=== PATIENT | female | born 1960 | race Caucasian/White ===

== ENCOUNTER 2023-09-16 07:23 | Day surgery (SDC) | payer MEDICARE ==
[~2023-09-16 07:23] MED LIST: LIDOCAINE 1% (10MG/ML) FOR IV START INTRADERMA PRN
[2023-09-16 07:54] VITALS: TEMP 97.2
[2023-09-16] MEDS: IV FLUID CONTINUATION 1,000 ML IV ONE (08:03)
[2023-09-16] MEDS: LACTATED RINGERS 1,000 ML IV SCH (08:03)
[2023-09-16] MEDS ORDERED: PROPOFOL 10 MG/ML 20 ML VIAL IV ONE (08:11)
--- NOTE | 2023-09-16 08:34 | P.PCN ---
Date of Procedure: 09/16/23 Procedure(s) Performed: Brief history: Patient is a pleasant 63-year-old white female scheduled for an elective upper endoscopy as well as colonoscopy as a part of evaluation of severe heartburn of 70 is suspected omeprazole 20 mg daily continues to have daily symptoms. She is also scheduled for a screening colonoscopy today. Procedure performed: Esophagogastroduodenoscopy Colonoscopy Preoperative diagnosis: Longstanding history of GERD Screening for colon cancer Anesthesia: MAC Procedure: After informed consent was obtained from the patient was brought into the endoscopy unit and IV sedation was administered by anesthesia under continuous monitoring. Initially upper endoscopy was done. The Olympus GF 160 video endoscope was inserted inserted into the mouth and esophagus intubated without any difficulty and was gradually advanced into the stomach and duodenum and carefully examined. The bulb and second part of the duodenum appeared normal. The scope was then withdrawn into the stomach adequately insufflated with air and upon careful examination the antrum and body, cardia and fundus appeared normal. The scope was then withdrawn into the esophagus. Small hiatal hernia noted. The GE junction was located at 35 cm to the incisors. It appeared regular but given multiple erosions noted in the distal esophagus consistent with LA grade B reflux esophagitis. Rest of the esophagus appeared normal. Patient tolerated the procedure well. At this time the patient continued to remain sedation. Initial digital rectal examination was normal. Olympus CF 160 video colonoscope was then inserted into the rectum and gradually advanced to the right colon with ileocolic anastomosis was visualized and appeared normal. Mucosa of the transverse colon, descending colon, sigmoid colon and rectum appeared normal. Retroflexion was performed in the rectum and no lesions were noted. Patient tolerated the procedure well. Impression: 1. Upper endoscopy reviewed small hiatal hernia anemia lesions of the distal esophagus consistent with LA grade B reflux esophagitis 2. Colonoscopy was within normal limits with no evidence of colorectal neoplasia Recommendations: Findings of this examination were discussed with the patient as well as family. She was advised to increase omeprazole to 20 mg twice daily and following reflux measures. Recommended repeat screening colonoscopy in 10 years.
[2023-09-16 08:40] VITALS: RESP 18
[2023-09-16 09:04] VITALS: BP 137/67; PULSE 67
== END 2023-09-16 09:15 | disposition home or self-care (01) ==
LOC: ORWHC2ENDO 07:23
PROVIDERS: ATTEND Internal Medicine Gastroenterology
DX: K44.9 Diaphragmatic hernia without obstruction or gangrene (principal); D64.9 Anemia, unspecified; E78.5 Hyperlipidemia, unspecified; E07.9 Disorder of thyroid, unspecified; M54.59 Other low back pain; G91.9 Hydrocephalus, unspecified; F41.9 Anxiety disorder, unspecified; F03.90 Unspecified dementia, unspecified severity, without behavioral disturbance, psychotic disturbance, mood disturbance, and anxiety; F31.9 Bipolar disorder, unspecified; M81.0 Age-related osteoporosis without current pathological fracture; Z79.83 Long term (current) use of bisphosphonates; Z79.899 Other long term (current) drug therapy; Z79.51 Long term (current) use of inhaled steroids
CPT/HCPCS: 43235; J2704; G0121

== ENCOUNTER 2023-11-19 12:58 | Emergency (ER) | payer MEDICARE ==
[2023-11-19 13:05] VITALS: RESP 18
--- NOTE | 2023-11-19 13:18 | ED ---
Psych HPI - General Chief Complaint: Psychiatric Symptoms Stated Complaint: petition/psych Time Seen by Provider: 11/19/23 13:00 Source: EMS, RN notes reviewed, old records reviewed Mode of arrival: EMS Limitations: no limitations - History of Present Illness Initial Comments: This is a 63-year-old female for psychiatric evaluation. Patient presents today for evaluation of trying to leave assisted living facility. When she tried to leave EMS was called PD was called and patient made statements of wanting to kill herself. Patient stated she was initially her self with a gun, patient is very uncooperative and uninformative during history of present illness MD Complaint: suicidal ideation, feels depressed, altered mental status -: unknown Associated Psychiatric Symptoms: depression, suicidal ideation, racing thoughts Quality: constant Improves With: none Worsens With: none Associated Symptoms: confusion Treatments Prior to Arrival: placed on mental health hold If Self Harm: admits thoughts of self harm - Related Data Home Medications Medication Instructions Recorded Confirmed ARIPiprazole [Abilify] 10 mg PO DAILY 09/11/23 11/19/23 Acetaminophen [Tylenol Arthritis] 650 mg PO BID@0700,1600 09/11/23 11/19/23 Acetaminophen [Tylenol Arthritis] 650 mg PO Q6H PRN 09/11/23 11/19/23 Alendronate Sodium 70 mg PO OCAMPO@0500 09/11/23 11/19/23 Atorvastatin Calcium 20 mg PO HS 09/11/23 11/19/23 Calcium Carbonate [Tums] 500 mg PO DAILY 09/11/23 11/19/23 Cyclobenzaprine HCl 10 mg PO BID 09/11/23 11/19/23 DULoxetine HCL [Cymbalta] 60 mg PO DAILY 09/11/23 11/19/23 Docusate [Colace] 100 mg PO BID 09/11/23 11/19/23 Donepezil [Aricept] 5 mg PO HS 09/11/23 11/19/23 Fluticasone Propionate 1 spr EA NOSTRIL DAILY@0700 09/11/23 11/19/23 [Fluticasone Propionate [place] 50 mcg Nasal [place]] Linaclotide [Linzess] 72 mcg PO DAILY 09/11/23 11/19/23 Memantine [Namenda] 10 mg PO BID 09/11/23 11/19/23 Naproxen Sodium [Aleve] 220 mg PO Q8H PRN 09/11/23 11/19/23 Omeprazole 20 mg PO BID 09/11/23 11/19/23 Oxybutynin Chloride [oxyBUTYnin 10 mg PO DAILY 09/11/23 11/19/23 chloride ER] buPROPion HCL [buPROPion HCL XL] 300 mg PO DAILY 09/11/23 11/19/23 polyethylene glycoL 3350 [Miralax] 17 gm PO DAILY 09/11/23 11/19/23 traMADol HCL 50 mg PO BID@0700,1600 09/11/23 11/19/23 traZODone HCL 150 mg PO HS 09/11/23 11/19/23 Maalox Plus 30 mg PO Q6H PRN 11/19/23 11/19/23 Allergies Allergy/AdvReac Type Severity Reaction Status Date / Time No Known Allergies Allergy Verified 11/19/23 14:50 Review of Systems ROS Statement: Those systems with pertinent positive or pertinent negative responses have been documented in the HPI. ROS Other: All systems not noted in ROS Statement are negative. Past Medical History Past Medical History: Dementia, Hyperlipidemia, Thyroid Disorder Additional Past Medical History / Comment(s): congenital hydrocephalus, hep C, hypothyroidism, osteoporosis, chronic low back pain, difficulty swallowing solid foods History of Any Multi-Drug Resistant Organisms: None Reported Past Surgical History: No Surgical Hx Reported Past Anesthesia/Blood Transfusion Reactions: No Reported Reaction Past Psychological History: Anxiety, Bipolar, Depression Smoking Status: Never smoker General Exam Limitations: no limitations General appearance: alert, in no apparent distress Head exam: Present: atraumatic, normocephalic, normal inspection Eye exam: Present: normal appearance, PERRL, EOMI. Absent: scleral icterus, conjunctival injection, periorbital swelling ENT exam: Present: normal exam, mucous membranes moist Neck exam: Present: normal inspection. Absent: tenderness, meningismus, lymphadenopathy Respiratory exam: Present: normal lung sounds bilaterally. Absent: respiratory distress, wheezes, rales, rhonchi, stridor Cardiovascular Exam: Present: regular rate, normal rhythm, normal heart sounds. Absent: systolic murmur, diastolic murmur, rubs, gallop, clicks GI/Abdominal exam: Present: soft, normal bowel sounds. Absent: distended, tenderness, guarding, rebound, rigid Extremities exam: Present: normal inspection, full ROM, normal capillary refill. Absent: tenderness, pedal edema, joint swelling, calf tenderness Back exam: Present: normal inspection Neurological exam: Present: alert, oriented X3, CN II-XII intact Psychiatric exam: Present: normal affect, normal mood Skin exam: Present: warm, dry, intact, normal color. Absent: rash Course Vital Signs 11/19/23 11/19/23 12:59 17:07 Temperature 98.1 F 98.0 F Pulse Rate 102 H 88 Respiratory 18 18 Rate Blood Pressure 128/50 145/95 O2 Sat by Pulse 98 97 Oximetry - Reevaluation(s) Reevaluation #1: 11/19/23 13:24 Medical records reviewed Reevaluation #2: 11/19/23 13:24 Medically cleared for psychiatric evaluation Reevaluation #3: Differential Mental Health Depression, anxiety, bipolar, psychosis, schizophrenia, borderline personality, situational depression, adjustment disorder, behavioral disorder, brain tumor, malingering, substance abuse, encephalopathy, medication reaction, dementia, hypothyroidism, degenerative neurologic disorder, lupus.... This is not meant to be all-inclusive list Reevaluation #4: Was pt. sent in by a medical professional or institution (, PA, PROFESSOR OF SURGERY, urgent care, hospital, or group home...) When possible be specific @ -no Did you speak to anyone other than the patient for history (EMS, parent, family, police, friend...)? What history was obtained from this source @ -no Did you review nursing and triage notes (agree or disagree)? Why? @ -agree Are old charts reviewed (outside hosp., previous admission, EMS record, old EKG, old radiological studies, urgent care reports/EKG's, group home records)? Report findings @ -yes Differential Diagnosis (chest pain, altered mental status, abdominal pain women, abdominal pain men, vaginal bleeding, weakness, fever, dyspnea, syncope, headache, dizziness, GI bleed, back pain, seizure, CVA, palpatations, mental health, musculoskeletal)? @ -prior EKG interpreted by me (3pts min.). @ -no X-rays interpreted by me (1pt min.). @ -no CT interpreted by me (1pt min.). @ -no U/S interpreted by me (1pt. min.). @ -no What testing was considered but not performed or refused? (CT, X-rays, U/S, labs)? Why? @ -none What meds were considered but not given or refused? Why? @ -none Did you discuss the management of the patient with other professionals (professionals i.e. , PA, PROFESSOR OF SURGERY, lab, RT, psych nurse, administrator social welfare, horse and wagon driver, teacher, earth science technical officer, director of casework department)? Give summary @ -no Was smoking cessation discussed for >3mins.? @ -no Was critical care preformed (if so, how long)? @ -no Were there social determinants of health that impacted care today? How? (Homelessness, low income, unemployed, alcoholism, drug addiction, transportation, low edu. Level, literacy, decrease access to med. care, fci, rehab)? @ -none Was there de-escalation of care discussed even if they declined (Discuss DNR or withdrawal of care, Hospice)? DNR status @ -no What co-morbidities impacted this encounter? (DM, HTN, Smoking, COPD, CAD, Cancer, CVA, ARF, Chemo, Hep., AIDS, mental health diagnosis, sleep apnea, morbid obesity)? @ -none Was patient admitted / discharged? Hospital course, mention meds given and route, prescriptions, significant lab abnormalities, going to OR and other pertinent info. @ - 63 female was seen by psychiatry, patient is not suicidal or homicidal can be discharged home Discharge Undiagnosed new problem with uncertain prognosis? @ -no Drug Therapy requiring intensive monitoring for toxicity (Heparin, Nitro, Insulin, Cardizem)? @ -no Were any procedures done? @ -no Diagnosis/symptom? @ -Psychosis Acute, or Chronic, or Acute on Chronic? @ -Acute Uncomplicated (without systemic symptoms) or Complicated (systemic symptoms)? @ -Complicated Side effects of treatment? @ -no Exacerbation, Progression, or Severe Exacerbation? @ -exacerbation Poses a threat to life or bodily function? How? (Chest pain, [place], [place], pneumonia, PE, COPD, DKA, ARF, appy, cholecystitis, CVA, Diverticulitis, Homicidal, Suicidal, threat to staff... and all critical care pts) @ -yes psychiatric illness Medical Decision Making - Medical Decision Making 63 female was seen by psychiatry, patient is not suicidal or homicidal can be discharged home Disposition Clinical Impression: Mood disorder, Depression Disposition: HOME SELF-CARE Condition: Fair Instructions (If sedation given, give patient instructions): Mood Disorders (ED) Is patient prescribed a controlled substance at d/c from ED?: No Referrals: Cristiana Diaz DO [Primary Care Provider] - 1-2 days Time of Disposition: 16:30
[2023-11-19 17:09] VITALS: BP 145/95; PULSE 88; TEMP 98
== END 2023-11-19 17:47 | disposition home or self-care (01) ==
LOC: EC 12:58
CPT/HCPCS: 82075; 99285

== ENCOUNTER 2024-01-19 23:37 | Inpatient (IN) | payer MEDICARE, OTHER ==
--- NOTE | 2024-01-20 00:10 | ED ---
Fall HPI - General Chief Complaint: Fall Stated Complaint: Fall Time Seen by Provider: 01/19/24 23:42 Source: patient, EMS Mode of arrival: EMS - History of Present Illness Initial Comments: Patient is a 63-year-old female past medical history of bipolar disorder, dementia presenting today for fall and left hip pain. Patient states was walking her crocs and fell onto her left hip. She was unable to ambulate after the fall. Describes 10 out of 10 pain in the left hip. Worsens with movements. Denies any numbness. Denies any additional injuries. Denies syncope, hitting her head or injuring her neck. Has had a prior right hip replacement unsure of when this was done or who performed. No prior surgeries on the left hip. Patient is not on blood thinners. - Related Data Home Medications Medication Instructions Recorded Confirmed ARIPiprazole [Abilify] 5 mg PO DAILY 09/11/23 01/20/24 Acetaminophen [Tylenol Arthritis] 650 mg PO BID 09/11/23 01/20/24 Alendronate Sodium 70 mg PO OCAMPO@0500 09/11/23 01/20/24 Atorvastatin Calcium 20 mg PO HS 09/11/23 01/20/24 Calcium Carbonate [Tums] 500 mg PO DAILY 09/11/23 01/20/24 Cyclobenzaprine HCl 10 mg PO BID 09/11/23 01/20/24 DULoxetine HCL [Cymbalta] 60 mg PO DAILY 09/11/23 01/20/24 Docusate [Colace] 100 mg PO BID 09/11/23 01/20/24 Donepezil [Aricept] 5 mg PO HS 09/11/23 01/20/24 Fluticasone Propionate 1 spr EA NOSTRIL DAILY@0700 09/11/23 01/20/24 [Fluticasone Propionate [place] 50 mcg Nasal [place]] Linaclotide [Linzess] 72 mcg PO DAILY 09/11/23 01/20/24 Memantine [Namenda] 10 mg PO BID 09/11/23 01/20/24 Omeprazole 20 mg PO BID 09/11/23 01/20/24 Oxybutynin Chloride [oxyBUTYnin 10 mg PO DAILY 09/11/23 01/20/24 chloride ER] buPROPion HCL [buPROPion HCL XL] 300 mg PO DAILY 09/11/23 01/20/24 polyethylene glycoL 3350 [Miralax] 17 gm PO DAILY 09/11/23 01/20/24 traZODone HCL 150 mg PO HS 09/11/23 01/20/24 Maalox Plus 30 mg PO Q6H PRN 11/19/23 01/20/24 Benzonatate [Tessalon [place]] 200 mg PO TID@0700,1300,1900 01/20/24 01/20/24 Midodrine HCl [ProAmantine] 2.5 mg PO TID@0700,1300,1900 01/20/24 01/20/24 guaiFENesin [Mucinex] 600 mg PO BID@0700,1900 01/20/24 01/20/24 Previous Rx's Medication Instructions Recorded Docusate [Colace] 100 mg PO BID #60 capsule 01/22/24 traMADol HCL 50 mg PO BID PRN #4 tab 01/23/24 Apixaban [Eliquis] 2.5 mg PO BID #30 tab 01/24/24 HYDROcodone/APAP 5-325MG [[place] 1 - 2 tab PO Q6HR PRN #48 tab 01/24/24 5-325] Allergies Allergy/AdvReac Type Severity Reaction Status Date / Time No Known Allergies Allergy Verified 01/20/24 08:38 Review of Systems ROS Statement: Those systems with pertinent positive or pertinent negative responses have been documented in the HPI. ROS Other: All systems not noted in ROS Statement are negative. Past Medical History Past Medical History: Dementia, Hyperlipidemia, Thyroid Disorder Additional Past Medical History / Comment(s): congenital hydrocephalus, hep C, hypothyroidism, osteoporosis, chronic low back pain, difficulty swallowing solid foods History of Any Multi-Drug Resistant Organisms: None Reported Past Surgical History: No Surgical Hx Reported Past Anesthesia/Blood Transfusion Reactions: No Reported Reaction Past Psychological History: Anxiety, Bipolar, Depression Smoking Status: Never smoker General Exam - General Exam Comments Initial Comments: PE: CONSTITUTIONAL: No apparent distress, well appearing SKIN: Warm, dry, no jaundice, hives or petechiae, no lacerations or hematomas noted EYES: Pupils are equally round, extraocular movements intact without nystagmus, clear conjunctiva, non-icteric sclera HENT: Normocephalic, atraumatic, moist mucus membranes, oropharynx clear without exudates NECK: , Full range of motion, normal appearance, midline spinal tenderness to palpation PULMONARY: Clear to auscultation without wheezes, rhonchi, or rales, normal excursion, no accessory muscle use and no stridor CARDIOVASCULAR: Regular rate, rhythm, normal S1 and S2. No appreciated murmurs, rubs or gallops. Strong radial pulses with intact distal perfusion. No lower extremity edema GASTROINTESTINAL: Soft, active bowel sounds throughout, non-tender, non- distended, no palpable masses, no rebound or guarding. No hepatosplenomegaly MUSCULOSKELETAL: Extremities have no gross deformity, no edema, redness, or swelling. No calf swelling NEUROLOGIC:_a/o x 2 (oriented to self, knows she came from [place] and is in the hospital, knows Thanksgiving is this , believes date is Jan 162021, GCS 15, normal mentation and speech. Moves unaffected extremities x 3 without motor or sensory deficit, difficulty with hip flexion and knee extension 2/2 pain in hip with movements, TTP lateral left thigh, LLE held in external rotation and shortened compared to right, 2+ DP pulse palpable, sensation to light touch intact throughout thyroid extremity, right lower extremity, hips, bilateral upper extremities are nontender with patient and without gross deformity, no midline tenderness to palpation of the neck PSYCHIATRIC:_normal mood and affect, thought process is clear and linear Limitations: no limitations Course Vital Signs 01/19/24 01/20/24 23:39 03:21 Temperature 97.7 F Pulse Rate 81 79 Respiratory 16 18 Rate Blood Pressure 145/82 148/80 O2 Sat by Pulse 95 93 L Oximetry Medical Decision Making - Medical Decision Making Was pt. sent in by a medical professional or institution (, PA, MILLINERY SALESPERSON, urgent care, hospital, or jail...) When possible be specific Sent from assisted living facility Did you speak to anyone other than the patient for history (EMS, parent, family, police, friend...)? What history was obtained from this source @ Discussed with patient's nurse Miguelangel, from her facility to confirm patient's baseline mental status Did you review nursing and triage notes (agree or disagree)? Why? @ -I reviewed and agree with nursing and triage notes Were old charts reviewed (outside hosp., previous admission, EMS record, old EKG, old radiological studies, urgent care reports/EKG's, jail records)? Report findings @ -Medical records reviewed Differential Diagnosis (chest pain, altered mental status, abdominal pain women, abdominal pain men, vaginal bleeding, weakness, fever, dyspnea, syncope, headache, dizziness, GI bleed, back pain, seizure, CVA, palpatations, mental health, musculoskeletal)? @ -Differential Musculoskeletal Muscular strain, contusion, ligament sprain, fracture, arthritis, septic arthritis, bursitis, cellulitis, muscle spasm, nerve compression... This is not meant to be in all inclusive list EKG interpreted by me (3pts min.). @ -Sinus rhythm, rate 79 bpm, MS interval 152 ms, QRS duration 90 ms, QT/QTc 379/414 ms, normal axis, no ST elevations or depressions, no arrhythmia X-rays interpreted by me (1pt min.). @X-ray shows comminuted spiral, subtrochanteric fracture of the left femur CT interpreted by me (1pt min.). @ -None done U/S interpreted by me (1pt. min.). @ -None done What testing was considered but not performed or refused? (CT, X-rays, U/S, labs)? Why? @ -None What meds were considered but not given or refused? Why? @ -None Did you discuss the management of the patient with other professionals (professionals i.e. , PA, MILLINERY SALESPERSON, lab, RT, psych nurse, medical social consultant, motor and controls tester, teacher, water resources technical officer, protective services case worker)? Give summary @ -Case was discussed with Dr. Batista, orthopedics, kindly accepts for admission, recommends keeping patient n.p.o. request medicine consult for medical clearance and management, preop labs Was smoking cessation discussed for >3mins.? @ -No Was critical care preformed (if so, how long)? @ -No Were there social determinants of health that impacted care today? How? (Homelessness, low income, unemployed, alcoholism, drug addiction, transportation, low edu. Level, literacy, decrease access to med. care, snf, rehab)? @ -No Was there de-escalation of care discussed even if they declined (Discuss DNR or withdrawal of care, Hospice)? @ -No What co-morbidities impacted this encounter? (DM, HTN, Smoking, COPD, CAD, Cancer, CVA, ARF, Chemo, Hep., AIDS, mental health diagnosis, sleep apnea, morbid obesity)? @COPD Was patient admitted / discharged? Hospital course, mention meds given and route, prescriptions, significant lab abnormalities, going to OR and other pertinent info. @ -Admission to orthopedics-patient is a pleasant 63-year-old female history dementia, COPD presenting for mechanical trip and fall with resultant left hip injury. On assessment patient awake alert in no acute distress. Left lower extremity is held externally rotated and shortened compared to right lower e xtremity. Is neurovascularly intact, no lacerations or hematomas. Tenderness palpation of the proximal femur, no tenderness location of the hips/iliac crests bilaterally. Head and neck are atraumatic, remaining extremities are atraumatic. Discussed with patient plan for x-rays and pain control. Patient agreeable plan of care. Of note patient AO x 2. I did call patient's facility and confirm with her RN, Miguelangel, that this is baseline for patient, which he confirmed is patient's baseline. XR with comminuted subtrochanteric fracture. Discussed case with Dr. Batista, see note above. Kindly accepts for admission. [facility] consulted for med clearance, CXR, basic labs ordered. Updated patient to findings and plan of care. Pt agreeable with POC. Admitted in stable condition. Undiagnosed new problem with uncertain prognosis? @ -No Drug Therapy requiring intensive monitoring for toxicity (Heparin, Nitro, Insulin, Cardizem)? @ -No Were any procedures done? @ -No Diagnosis/symptom? @ -Comminuted displaced subtrochanteric fracture Acute, or Chronic, or Acute on Chronic? @ -acute Uncomplicated (without systemic symptoms) or Complicated (systemic symptoms)? @ uncomplicated Side effects of treatment? @ -No Exacerbation, Progression, or Severe Exacerbation? @ -No Poses a threat to life or bodily function? How? (Chest pain, [place], [place], pneumonia, PE, COPD, DKA, ARF, appy, cholecystitis, CVA, Diverticulitis, Homicidal, Suicidal, threat to staff... and all critical care pts) @ Yes, if left untreated would lead to permanent disability and chronic pain - Lab Data Result diagrams: 01/23/24 03:32 01/23/24 03:32 Disposition Clinical Impression: Comminuted fracture of shaft of femur Disposition: ADMITTED IP TO THIS HOSP Condition: Stable Is patient prescribed a controlled substance at d/c from ED?: No
[2024-01-20] MEDS: fentaNYL (PF) 50 MCG/ML 2 ML AMP IVP STA (00:11)
[2024-01-20] MEDS ORDERED: ONDANSETRON 4 MG/2 ML VIAL IVP PRN (00:50)
[2024-01-20] MEDS ORDERED: MORPHINE SULFATE 2 MG/ML SYRINGE IVP PRN (00:50)
--- NOTE | 2024-01-20 01:17 | XR ---
EXAMINATION TYPE: XR chest 1V DATE OF EXAM: 01/20/2024 COMPARISON: NONE HISTORY: Fall TECHNIQUE: Single frontal view of the chest is obtained. FINDINGS: There is right internal jugular central venous catheter terminating at cavoatrial junction. There is no suspicious peripheral focal air space opacity, pleural effusion, or pneumothorax seen. The cardiac silhouette size is upper limits of normal. Increase interstitial markings bilaterally are seen. The osseous structures are intact. IMPRESSION: Perhaps mild bilateral interstitial edema. Correlate for possible fluid overload state. [facility], , 01/20/2024 1:15 AM
[2024-01-20] MEDS: ACETAMINOPHEN IV (For NPO) 1,000 MG in EMPTY BAG 1 BAG IVPB STA (01:21)
[2024-01-20] MEDS: LIDOCAINE 4% PATCH TOPICAL ONE (01:22)
--- NOTE | 2024-01-20 01:23 | XR ---
EXAMINATION TYPE: XR Hip RT and AP Pelvis, XR femur LT DATE OF EXAM: 01/20/2024 COMPARISON: NONE HISTORY: Fall, left hip pain, suspect fracture TECHNIQUE: A single AP view of the pelvis is obtained. Two views of the right hip are obtained. 2 vi ews left femur. FINDINGS: Osseous structures are demineralized. There is no acute displaced fracture evident in the pelvis. Old healed fractures of the bilateral superior and inferior pelvic rami are seen. Two views of right hip show internal fixation hardware is revealed fracture of the right hip. There i s some heterotopic ossification seen. No acute fracture is identified. There is acute comminuted displaced subtrochanteric fracture of the left proximal femur. There is eran e impaction of the distal fracture fragment. Overlying soft tissue is unremarkable. IMPRESSION: There is acute comminuted displaced subtrochanteric fracture of the left proximal femur [facility], , 01/20/2024 1:21 AM
[2024-01-20] MEDS ORDERED: ACETAMINOPHEN TAB 325 MG TAB PO PRN (02:05)
[2024-01-20] MEDS ORDERED: NALOXONE 0.4 MG/ML 1 ML VIAL IV PRN (02:05)
[2024-01-20] MEDS: MORPHINE SULFATE 2 MG/ML SYRINGE IVP PRN (02:17)
[2024-01-20] MEDS: DEXTROSE 5%-0.45% NACL 1,000 ML IV SCH (02:44)
[2024-01-20] MEDS: traZODone HCL 50 MG TAB PO SCH (02:44)
[2024-01-20 02:46] LABS: Basophils # (A) 0.1 k/uL (0-0.2); Basophils % (A) 0 %; Eosinophils # (A) 0.3 k/uL (0-0.7); Eosinophils % (A) 2 %; HCT 34.2 % (34.0-46.0); HGB 11.7 gm/dL (11.4-16.0); Lymphocytes # (A) 1.6 k/uL (1.0-4.8); Lymphocytes % (A) 11 %; MCH 30.4 pg (25.0-35.0); MCHC 34.1 g/dL (31.0-37.0); Mean Platelet Volume 7.2; Monocytes # (A) 0.6 k/uL (0-1.0); Monocytes % (A) 4 %; Neutrophils % (A) 81 %; Platelet Count 363 k/uL (150-450); RBC 3.85 m/uL (3.80-5.40); RDW 12.4 % (11.5-15.5); WBC 14.7 k/uL (3.8-10.6)
[2024-01-20 02:50] LABS: African American GFR (CKD) >90 (>60 ml/min/1.73 sqM); Anion Gap 6 mmol/L; Blood Urea Nitrogen 14 mg/dL (7-17); Calcium 8.1 mg/dL (8.4-10.2); Carbon Dioxide 23 mmol/L (22-30); Chloride 94 mmol/L (98-107); Glucose 128 mg/dL (74-99); Non-African American GFR(CKD) >90 (>60 ml/min/1.73 sqM); Potassium 3.9 mmol/L (3.5-5.1); Sodium 123 mmol/L (137-145)
[2024-01-20 02:57] LABS: INR 0.9 (<1.2)
[2024-01-20 03:24] LABS: Partial Thromboplastin Time 18.8 sec (22.0-30.0)
[2024-01-20] MEDS: MORPHINE SULFATE 4 MG/ML SYRINGE IV PRN (04:21)
--- NOTE | 2024-01-20 07:45 | P.HPOR ---
History of Present Illness H&P Date: 01/20/24 The patient is a a very pleasant 63-year-old female with a past medical history significant for dementia, psychiatric issues, and COPD as well as a prior right intertrochanteric hip fracture fixed at [facility] around 5 years ago who presents today with a left subtrochanteric femur fracture. According to the patient she was wearing crocs shoes when she lost her balance, slipping and inju ring her left leg. She was unable to walk and was brought to the ER. X-rays showed a displaced subtrochanteric femur fracture. She was admitted under my care. This morning she is complaining of isolated pain in her left hip and thigh. Past Medical History Past Medical History: Dementia, Hyperlipidemia, Thyroid Disorder Additional Past Medical History / Comment(s): congenital hydrocephalus, hep C, hypothyroidism, osteoporosis, chronic low back pain, difficulty swallowing solid foods, shunt in brain History of Any Multi-Drug Resistant Organisms: None Reported Past Surgical History: No Surgical Hx Reported Past Anesthesia/Blood Transfusion Reactions: No Reported Reaction Past Psychological History: Anxiety, Bipolar, Depression Smoking Status: Never smoker Past Alcohol Use History: None Reported Past Drug Use History: None Reported Medications and Allergies Home Medications Medication Instructions Recorded Confirmed Type ARIPiprazole [Abilify] 10 mg PO DAILY 09/11/23 11/19/23 History Acetaminophen [Tylenol Arthritis] 650 mg PO BID@0700,1600 09/11/23 11/19/23 History Acetaminophen [Tylenol Arthritis] 650 mg PO Q6H PRN 09/11/23 11/19/23 History Alendronate Sodium 70 mg PO BERNABE@0500 09/11/23 11/19/23 History Atorvastatin Calcium 20 mg PO HS 09/11/23 11/19/23 History Calcium Carbonate [Tums] 500 mg PO DAILY 09/11/23 11/19/23 History Cyclobenzaprine HCl 10 mg PO BID 09/11/23 11/19/23 History DULoxetine HCL [Cymbalta] 60 mg PO DAILY 09/11/23 11/19/23 History Docusate [Colace] 100 mg PO BID 09/11/23 11/19/23 History Donepezil [Aricept] 5 mg PO HS 09/11/23 11/19/23 History Fluticasone Propionate 1 spr EA NOSTRIL DAILY@0700 09/11/23 11/19/23 History [Fluticasone Propionate [place] 50 mcg Nasal [place]] Linaclotide [Linzess] 72 mcg PO DAILY 09/11/23 11/19/23 History Memantine [Namenda] 10 mg PO BID 09/11/23 11/19/23 History Naproxen Sodium [Aleve] 220 mg PO Q8H PRN 09/11/23 11/19/23 History Omeprazole 20 mg PO BID 09/11/23 11/19/23 History Oxybutynin Chloride [oxyBUTYnin 10 mg PO DAILY 09/11/23 11/19/23 History chloride ER] buPROPion HCL [buPROPion HCL XL] 300 mg PO DAILY 09/11/23 11/19/23 History polyethylene glycoL 3350 [Miralax] 17 gm PO DAILY 09/11/23 11/19/23 History traMADol HCL 50 mg PO BID@0700,1600 09/11/23 11/19/23 History traZODone HCL 150 mg PO HS 09/11/23 11/19/23 History Maalox Plus 30 mg PO Q6H PRN 11/19/23 11/19/23 History Allergies Allergy/AdvReac Type Severity Reaction Status Date / Time No Known Allergies Allergy Verified 11/19/23 14:50 Physical Examination The patient is resting comfortably in her bed. She is alert and able to answer questions. Her head is normocephalic and atraumatic. Her cervical spine is nontender. She demonstrates nonlabored breathing with symmetric chest expansion. She has palpable pulses. There are no obvious deformities and there is no tenderness to palpation in both upper extremities. On inspection of the right lower extremity there are multiple surgical scars that are healed. She has no tenderness throughout the right lower extremity. She has no pain with passive range of motion of the right leg. A focused exam of the left lower extremity was conducted. On inspection there is obvious deformity with shortening and external rotation of the left leg. There is a pillow under the left thigh. Her thigh and calf are soft. There is pain with any attempts at passive range of motion. The foot is warm and well perfused with brisk capillary refill. Sensation is intact to light touch throughout the left foot. She is able to actively plantarflex and dorsiflex her ankle and her toes. Results X-rays of the pelvis, right hip, and left femur were reviewed. The patient has a prior right healed intertrochanteric hip fracture with sliding hip screw construct and cable. X-rays of the left femur show a displaced subtrochanteric spiral femur fracture. - Labs Labs: Abnormal Lab Results - Last 24 Hours (Table) 01/20/24 01/20/24 01/20/24 Range/Units 02:26 02:26 02: WBC 14.7 H (3.8-10.6) k/uL Neutrophils # 12.0 H (1.3-7.7) k/uL APTT 18.8 L (22.0-30.0) sec Sodium 123 L (137-145) mmol/L Chloride 94 L (98-107) mmol/L Glucose 128 H (74-99) mg/dL Calcium 8.1 L (8.4-10.2) mg/dL H & H 01/20/24 Range/Units 02:26 Hgb 11.7 (11.4-16.0) gm/dL Hct 34.2 (34.0-46.0) % Coagulation 01/20/24 Range/Units 02: INR 0.9 (<1.2) Result Diagrams: 01/20/24 02:26 01/20/24 02:26 Assessment and Plan Assessment: Left subtrochanteric femur fracture Healed right intertrochanteric hip fracture with intact sliding hip screw construct COPD Dementia Plan: I met with the patient this morning to discuss treatment options. My recommendation would be to proceed with operative fixation of her left bernabe btrochanteric femur fracture with a long intramedullary hip screw. We briefly discussed the procedure, the recovery, and potential risks and complications. Having previously undergone right hip fracture surgery the patient is somewhat aware of these potential risks and complications. The patient is to remain on bedrest with strict nonweightbearing of the left lower extremity. Internal medicine has been consulted for preoperative clearance and perioperative medical management. We will plan on surgery later this afternoon once she is cleared. Time with Patient: Greater than 30
[2024-01-20] MEDS: PANTOPRAZOLE 40 MG/10 ML VIAL IV SCH (08:38)
[2024-01-20] MEDS ORDERED: MAG HYDROX/AL HYDROX/SIMETH 30 ML CUP PO PRN (09:28)
[2024-01-20] MEDS: CALCIUM CARBONATE 500 MG CHEWABLE PO SCH (09:46)
[2024-01-20] MEDS: DOCUSATE 100 MG CAP PO SCH (09:47)
[2024-01-20] MEDS: ACETAMINOPHEN TAB 325 MG TAB PO SCH (09:47)
[2024-01-20] MEDS: polyethylene glycoL 3350 17 GM POWD.PACK PO SCH (09:47)
[2024-01-20] MEDS: MEMANTINE 10 MG TAB PO SCH (10:05)
[2024-01-20] MEDS: buPROPion XL 300 MG TAB.ER.24H PO SCH (10:05)
[2024-01-20] MEDS: DULoxetine HCL 60 MG CAPSULE.DR PO SCH (10:05)
[2024-01-20] MEDS: ARIPiprazole 5 MG TAB PO SCH (10:05)
[2024-01-20] MEDS: OXYBUTYNIN 10 MG TAB.ER.24 PO SCH (10:05)
[2024-01-20] MEDS: SODIUM CHLORIDE 0.9% 1,000 ML IV SCH (10:30)
[2024-01-20 11:25] LABS: Appearance,Urine Clear (Clear); Bilirubin,Urine Negative (Negative); Blood,Urine Negative (Negative); Color,Urine Light Yellow; Glucose,Urine (UA) Negative (Negative); Ketones,Urine Negative (Negative); Leukocyte Esterase,Urine Negative (Negative); Nitrite,Urine Negative (Negative); Protein,Urine Negative (Negative); Specific Gravity,Urine 1.017 (1.001-1.035); Urobilinogen,Urine <2.0 mg/dL (<2.0)
[2024-01-20 12:51] LABS: African American GFR (CKD) >90 (>60 ml/min/1.73 sqM); Anion Gap 4 mmol/L; Blood Urea Nitrogen 11 mg/dL (7-17); Calcium 7.4 mg/dL (8.4-10.2); Carbon Dioxide 23 mmol/L (22-30); Chloride 95 mmol/L (98-107); Glucose 111 mg/dL (74-99); Non-African American GFR(CKD) >90 (>60 ml/min/1.73 sqM); Potassium 3.6 mmol/L (3.5-5.1); Sodium 122 mmol/L (137-145)
--- NOTE | 2024-01-20 13:16 | CA ---
Transthoracic Echo Report Name: Jewell Suarez Age: 63 Gender: F : 1960 Exam Date: 01/20/2024 10:26 Exam Location: [facility] Ht (in): 65 Wt (lb): 135 Ordering Physician: Radha Menard Attending/Referring Phys: Derian CALL Forensic Psychologist Kenya Cortes, BEE Procedure CPT: Indications: CHF, surgical clearance Cardiac Hx: Technical Quality: Good Contrast 1: Total Dose (mL): Contrast 2: Total Dose (mL): MEASUREMENTS (Male / Female) Normal Values 2D ECHO LV Diastolic Diameter PLAX 3.9 cm 4.2 - 5.9 / 3.9 - 5.3 cm LV Systolic Diameter PLAX 1.8 cm IVS Diastolic Thickness 0.8 cm 0.6 - 1.0 / 0.6 - 0.9 cm LVPW Diastolic Thickness 1.1 cm 0.6 - 1.0 / 0.6 - 0.9 cm LV Relative Wall Thickness 0.5 RV Internal Dim ED PLAX 1.8 cm LA Systolic Diameter LX 2.6 cm 3.0 - 4.0 / 2.7 - 3.8 cm LV Diastolic Volume MOD BP 37.0 cm??? 67 - 155 / 56 - 104 cm??? LV Systolic Volume MOD BP 10.1 cm??? 22 - 58 / 19 - 49 cm??? LV Ejection Fraction MOD BP 72.8 % >= 55 % LV Cardiac Index MOD BP 1285.3 cm???/min???m??? LV Diastolic Volume MOD 4C 38.9 cm??? LV Systolic Volume MOD 4C 9.1 cm??? LV Ejection Fraction MOD 4C 76.5 % LV Cardiac Index MOD 4C 1419.7 cm???/min???m??? LV Diastolic Length 4C 6.7 cm LV Systolic Length 4C 4.7 cm LV Diastolic Volume MOD 2C 32.3 cm??? LV Systolic Volume MOD 2C 10.9 cm??? LV Ejection Fraction MOD 2C 66.2 % LV Cardiac Index MOD 2C 1016.9 cm???/min???m??? LV Diastolic Length 2C 6.1 cm LV Systolic Length 2C 4.4 cm LA Volume 22.1 cm??? 18 - 58 / 22 - 52 cm??? LA Volume Index 13.1 cm???/m??? 16 - 28 cm???/m??? M-MODE Aortic Root Diameter MM 3.1 cm LA Systolic Diameter MM 2.1 cm LA Ao Ratio MM 0.7 AV Cusp Separation MM 1.8 cm DOPPLER MV Area PHT 2.0 cm??? Mitral E Point Velocity 63.2 cm/s Mitral A Point Velocity 92.8 cm/s Mitral E to A Ratio 0.7 MV Deceleration Time 374.3 ms TR Peak Velocity 210.6 cm/s TR Peak Gradient 17.7 mmHg Right Ventricular Systolic Press 22.7 mmHg FINDINGS Left Ventricle Left ventricular ejection fraction is estimated at 55-60 %. Mildly increased posterior wall thickness. Left ventricular cavity size normal. No obvious regional wall motion abnormalities. Right Ventricle Normal right ventricular size and function. Right ventricular systolic pressure within normal limits. Right Atrium Normal right atrial size. Left Atrium Normal left atrial size. Mitral Valve Structurally normal mitral valve. No mitral stenosis. Mild mitral regurgitation. Aortic Valve Trileaflet aortic valve. No aortic valve stenosis or regurgitation. Tricuspid Valve Structurally normal tricuspid valve. No tricuspid stenosis. mild tricuspid regurgitation. Pulmonic Valve Structurally normal pulmonic valve. Trace pulmonic regurgitation. No pulmonic stenosis. Pericardium No pericardial or pleural effusion. Aorta Normal size aortic root and proximal ascending aorta. CONCLUSIONS 1. Normal left ventricular size and systolic function 2. Mild mitral and tricuspid regurgitation Previewed by: Dr. Parish Peguero MD (Electronically Signed) Final Date: 20 January 2024 13:14
--- NOTE | 2024-01-20 14:11 | P.CONS ---
History of Present Illness - Reason for Consult Consult date: 01/20/24 - History of Present Illness This is a 63-year-old male with medical history significant for hyperlipidemia, hypothyroidism, congenital hydrocephalus with shunt, hepatitis C, dementia, anxiety/bipolar/depression. Patient came into the hospital secondary to a fall while slipping out of her crocs onto her left hip. She is unable to ambulate out of the fall reports having 10 out of 10 pain in the left hip. Femur x-ray reveals an acute comminuted displaced subtrochanteric fracture of the left proximal femur. Chest x-ray shows mild bilateral interstitial edema correlate for possible fluid overload state. Labs on admission reveal a white blood cell count of 14.7, sodium level of 123, BUN of 14 creatinine of 0.66. Her glucose was 128. Patient is afebrile, or normal sinus rhythm, she is slightly hypertensive in the 140s over 90s, she is 93% on room air. Will need to check a proBNP. EKG does reveal normal sinus rhythm with no specific T wave or ST abnormalities. REVIEW OF SYSTEMS: CONSTITUTIONAL: No fever, no malaise, no fatigue. HEENT: No recent visual problems or hearing problems. Denied any sore throat. CARDIOVASCULAR: No chest pain, orthopnea, PND, no palpitations, no syncope. PULMONARY: No shortness of breath, no cough, no hemoptysis. GASTROINTESTINAL: No diarrhea, no nausea, no vomiting, no abdominal pain. NEUROLOGICAL: No headaches, no weakness, no numbness. HEMATOLOGICAL: Denies any bleeding or petechiae. GENITOURINARY: Denies any burning micturition, frequency, or urgency. MUSCULOSKELETAL/RHEUMATOLOGICAL: Denies any joint pain, swelling, or any muscle pain. ENDOCRINE: Denies any polyuria or polydipsia. The rest of the 14-point review of systems is negative. PHYSICAL EXAMINATION: GENERAL: The patient is alert and oriented x3, not in any acute distress. Well developed, well nourished. HEENT: Pupils are round and equally reacting to light. EOMI. No scleral icterus. No conjunctival pallor. Normocephalic, atraumatic. No pharyngeal erythema. No thyromegaly. CARDIOVASCULAR: S1 and S2 present. No murmurs, rubs, or gallops. PULMONARY: Chest is clear to auscultation, no wheezing or crackles. ABDOMEN: Soft, nontender, nondistended, normoactive bowel sounds. No palpable organomegaly. MUSCULOSKELETAL: No joint swelling or deformity. EXTREMITIES: No cyanosis, clubbing, or pedal edema. NEUROLOGICAL: Gross neurological examination did not reveal any focal deficits. SKIN: No rashes. Assessment and plan Acute fall trauma fracture to the left hip patient is currently pending surgical repair this consultation was placed for preoperative clearance patient has been cleared to undergo surgical repair of the left hip fracture with low surgical risk. Hyponatremia possibly hypervolemic chest x-ray suggest a volume overload state we will check a proBNP and echocardiogram. Was started on D5 half-normal saline which has been discontinued at this time. Hypothyroidism resumed on her levothyroxine Hyperlipidemia resumed on statin therapy History of dementia likely vascular patient is on Namenda which has been resumed Congenital hydrocephalus with shunt History of hepatitis C History of chronic back pain History of dysphagia follows with Dr. Chaparro Lynn Chronic nicotine use Anxiety/bipolar/depression patient has been resumed on all of her psychiatric medications GI prophylaxis DVT prophylaxis as per primary Full code Plan Check a proBNP if normal we will start the patient on normal saline at 75 mls/hr Check echocardiogram Resume all home medications continue cardiac telemetry and monitor blood pressure Check urinalysis Repeat sodium level now and repeat in the morning Patient has been cleared medically for surgical repair of the left hip she is considered low operative risk. The impression and plan of care has been dictated by Nurse Braeden Gibbs as directed. Dr. Delicia MD I have performed a history and physical examination and medical decision making of this patient, discussed the same with the dictator, and agree with the dict ators assessment and plan as written, documented as a scribe. Based on total visit time, I have performed more than 50% of this visit. Past Medical History Past Medical History: Dementia, Hyperlipidemia, Thyroid Disorder Additional Past Medical History / Comment(s): congenital hydrocephalus, hep C, hypothyroidism, osteoporosis, chronic low back pain, difficulty swallowing solid foods, shunt in brain History of Any Multi-Drug Resistant Organisms: None Reported Past Surgical History: No Surgical Hx Reported Past Anesthesia/Blood Transfusion Reactions: No Reported Reaction Past Psychological History: Anxiety, Bipolar, Depression Smoking Status: Never smoker Past Alcohol Use History: None Reported Past Drug Use History: None Reported Medications and Allergies Home Medications Medication Instructions Recorded Confirmed Type ARIPiprazole [Abilify] 5 mg PO DAILY 09/11/23 01/20/24 History Acetaminophen [Tylenol Arthritis] 650 mg PO BID 09/11/23 01/20/24 History Alendronate Sodium 70 mg PO OCAMPO@0500 09/11/23 01/20/24 History Atorvastatin Calcium 20 mg PO HS 09/11/23 01/20/24 History Calcium Carbonate [Tums] 500 mg PO DAILY 09/11/23 01/20/24 History Cyclobenzaprine HCl 10 mg PO BID 09/11/23 01/20/24 History DULoxetine HCL [Cymbalta] 60 mg PO DAILY 09/11/23 01/20/24 History Docusate [Colace] 100 mg PO BID 09/11/23 01/20/24 History Donepezil [Aricept] 5 mg PO HS 09/11/23 01/20/24 History Fluticasone Propionate 1 spr EA NOSTRIL DAILY@0700 09/11/23 01/20/24 History [Fluticasone Propionate [place] 50 mcg Nasal [place]] Linaclotide [Linzess] 72 mcg PO DAILY 09/11/23 01/20/24 History Memantine [Namenda] 10 mg PO BID 09/11/23 01/20/24 History Naproxen Sodium [Aleve] 220 mg PO Q8H PRN 09/11/23 01/20/24 History Omeprazole 20 mg PO BID 09/11/23 01/20/24 History Oxybutynin Chloride [oxyBUTYnin 10 mg PO DAILY 09/11/23 01/20/24 History chloride ER] buPROPion HCL [buPROPion HCL XL] 300 mg PO DAILY 09/11/23 01/20/24 History polyethylene glycoL 3350 [Miralax] 17 gm PO DAILY 09/11/23 01/20/24 History traMADol HCL 50 mg PO BID 09/11/23 01/20/24 History traZODone HCL 150 mg PO HS 09/11/23 01/20/24 History Maalox Plus 30 mg PO Q6H PRN 11/19/23 01/20/24 History Azithromycin [Zithromax Z Pack] See Taper PO DAILY 01/20/24 01/20/24 History Benzonatate [Tessalon Perle] 200 mg PO TID@0700,1300,1900 01/20/24 01/20/24 History Midodrine HCl [ProAmantine] 2.5 mg PO TID@0700,1300,0 01/20/24 01/20/24 History guaiFENesin [Mucinex] 600 mg PO BID@0700,0 01/20/24 01/20/24 History predniSONE See Taper PO DAILY 01/20/24 01/20/24 History Allergies Allergy/AdvReac Type Severity Reaction Status Date / Time No Known Allergies Allergy Verified 01/20/24 08:38 Physical Exam Vitals: Vital Signs Temp Pulse Pulse Resp BP BP Pulse Ox 01/20/24 07:50 98.2 F 77 15 148/92 93 L 01/20/24 04:02 98.0 F 76 17 146/91 93 L 01/20/24 03:21 79 18 148/80 93 L 01/19/24 23:39 97.7 F 81 16 145/82 95 Intake and Output 01/19/24 01/20/24 01/20/24 22:59 06:59 14:59 Output Total 0 Balance 0 Output: Urine 0 Other: Weight 61.235 kg Results CBC & Chem 7: 01/20/24 02:26 01/20/24 12:26 Labs: Abnormal Lab Results - Last 24 Hours (Table) 01/20/24 01/20/24 01/20/24 Range/Units 02:26 02:26 02:26 WBC 14.7 H (3.8-10.6) k/uL Neutrophils # 12.0 H (1.3-7.7) k/uL APTT 18.8 L (22.0-30.0) sec Sodium 123 L (137-145) mmol/L Chloride 94 L (98-107) mmol/L Glucose 128 H (74-99) mg/dL Calcium 8.1 L (8.4-10.2) mg/dL Assessment and Plan Time with Patient: Less than 30
[2024-01-20] MEDS: guaiFENesin 600 MG TABLET.ER PO SCH (17:59)
--- NOTE | 2024-01-20 18:04 | P.PN ---
Progress Note - Text Patient not felt to be safe for stabilization of subtrochanteric femoral shaft fracture with IMN today by anesthesia due to low sodium levels. Will plan for surgery tomorrow if cleared by anesthesia.
[2024-01-20] MEDS: DONEPEZIL 5 MG TAB PO SCH (19:59)
[2024-01-20] MEDS: ATORVASTATIN 20 MG TAB PO SCH (19:59)
[2024-01-21 04:03] LABS: African American GFR (CKD) >90 (>60 ml/min/1.73 sqM); Anion Gap 4 mmol/L; Blood Urea Nitrogen 7 mg/dL (7-17); Calcium 7.2 mg/dL (8.4-10.2); Carbon Dioxide 22 mmol/L (22-30); Chloride 99 mmol/L (98-107); Glucose 109 mg/dL (74-99); Non-African American GFR(CKD) >90 (>60 ml/min/1.73 sqM); Potassium 3.8 mmol/L (3.5-5.1); Sodium 125 mmol/L (137-145)
[2024-01-21] MEDS: FLUTICASONE NASAL 50MCG/SPRAY 16GM BTL EA NOSTRIL SCH (06:57)
[2024-01-21] MEDS: SODIUM CHLORIDE 0.9% 500 ML 500 ML IV ONE (09:19)
--- NOTE | 2024-01-21 10:15 | P.NPCON ---
History of Present Illness - Reason for Consult acute renal failure - History of Present Illness patient is a 63-year-old female with history of hypothyroidism, hepatitis C, dementia and bipolar disorder. Patient is admitted to the hospital with history of fall and sustained a fracture of the left proximal femur. Patient is scheduled for surgery today. Sodium was noted to be low at 123. Patient received normal saline and sodium has improved to 125. No history of nausea vomiting or diarrhea. Patient currently has an indwelling Craig catheter but it does not look like she was having a urine retention although 900 mL of urine charted. no thiazide diuretics noted on med list. Patient was on Naprosyn. blood pressure slightly on the lower side. Past Medical History Past Medical History: Dementia, Hyperlipidemia, Thyroid Disorder Additional Past Medical History / Comment(s): congenital hydrocephalus, hep C, hypothyroidism, osteoporosis, chronic low back pain, difficulty swallowing solid foods, shunt in brain History of Any Multi-Drug Resistant Organisms: None Reported Past Surgical History: No Surgical Hx Reported Past Anesthesia/Blood Transfusion Reactions: No Reported Reaction Past Psychological History: Anxiety, Bipolar, Depression Smoking Status: Never smoker Past Alcohol Use History: None Reported Past Drug Use History: None Reported Medications and Allergies Home Medications Medication Instructions Recorded Confirmed Type ARIPiprazole [Abilify] 5 mg PO DAILY 09/11/23 01/20/24 History Acetaminophen [Tylenol Arthritis] 650 mg PO BID 09/11/23 01/20/24 History Alendronate Sodium 70 mg PO OCAMPO@0500 09/11/23 01/20/24 History Atorvastatin Calcium 20 mg PO HS 09/11/23 01/20/24 History Calcium Carbonate [Tums] 500 mg PO DAILY 09/11/23 01/20/24 History Cyclobenzaprine HCl 10 mg PO BID 09/11/23 01/20/24 History DULoxetine HCL [Cymbalta] 60 mg PO DAILY 09/11/23 01/20/24 History Docusate [Colace] 100 mg PO BID 09/11/23 01/20/24 History Donepezil [Aricept] 5 mg PO HS 09/11/23 01/20/24 History Fluticasone Propionate 1 spr EA NOSTRIL DAILY@0700 09/11/23 01/20/24 History [Fluticasone Propionate [place] 50 mcg Nasal [place]] Linaclotide [Linzess] 72 mcg PO DAILY 09/11/23 01/20/24 History Memantine [Namenda] 10 mg PO BID 09/11/23 01/20/24 History Naproxen Sodium [Aleve] 220 mg PO Q8H PRN 09/11/23 01/20/24 History Omeprazole 20 mg PO BID 09/11/23 01/20/24 History Oxybutynin Chloride [oxyBUTYnin 10 mg PO DAILY 09/11/23 01/20/24 History chloride ER] buPROPion HCL [buPROPion HCL XL] 300 mg PO DAILY 09/11/23 01/20/24 History polyethylene glycoL 3350 [Miralax] 17 gm PO DAILY 09/11/23 01/20/24 History traMADol HCL 50 mg PO BID 09/11/23 01/20/24 History traZODone HCL 150 mg PO HS 09/11/23 01/20/24 History Maalox Plus 30 mg PO Q6H PRN 11/19/23 01/20/24 History Azithromycin [Zithromax Z Pack] See Taper PO DAILY 01/20/24 01/20/24 History Benzonatate [Tessalon Perle] 200 mg PO TID@0700,1300,1900 01/20/24 01/20/24 History Midodrine HCl [ProAmantine] 2.5 mg PO TID@0700,1300,1900 01/20/24 01/20/24 History guaiFENesin [Mucinex] 600 mg PO BID@0700,1900 01/20/24 01/20/24 History predniSONE See Taper PO DAILY 01/20/24 01/20/24 History Allergies Allergy/AdvReac Type Severity Reaction Status Date / Time No Known Allergies Allergy Verified 01/20/24 08:38 Physical Exam Vitals: Vital Signs Temp Pulse Resp BP Pulse Ox 01/21/24 07:20 98.0 F 81 18 101/69 93 L 01/21/24 01:35 97.5 F L 83 18 109/67 90 L 01/20/24 19:23 99.0 F 87 15 111/77 94 L 01/20/24 14:00 98.4 F 90 18 157/71 97 Intake and Output 01/20/24 01/21/24 01/21/24 22:59 06:59 14:59 Output Total 900 1650 Balance -900 -1650 Output: Urine 900 1650 Other: Voiding Method Indwelling Catheter # Voids 1 patient is awake, comfortable, no acute distress. Examination of the heart S1 and S2 Examination of the lungs bilateral breath sounds are heard Abdomen is soft nontender Examination lower extremity shows no significant edema Results - Lab Results Most recent lab results Calcium 7.2 mg/dL (8.4-10.2) L 01/21/24 03:26 01/20/24 02:01/21/24 03:26 Assessment and Plan Assessment: 1. Hyponatremia, hypovolemic and improving with normal saline. Repeat sodium now and check urine osmolality and urine sodium. 2. Status post fall with fracture of left femur #3. History of bipolar disorder Plan: continue with normal saline. Check urine osmolality and urine sodium Repeat sodium now If serum sodium is stable and continues to increase patient may proceed with surgery. Next Thank you for the consultation. We will continue to follow the patient with you during her hospitalization.
--- NOTE | 2024-01-21 14:05 | P.PN ---
Subjective Progress Note Date: 01/21/24 This is a 63-year-old male with medical history significant for hyperlipidemia, hypothyroidism, congenital hydrocephalus with shunt, hepatitis C, dementia, anxiety/bipolar/depression. Patient came into the hospital secondary to a fall while slipping out of her crocs onto her left hip. She is unable to ambulate out of the fall reports having 10 out of 10 pain in the left hip. Femur x-ray reveals an acute comminuted displaced subtrochanteric fracture of the left proximal femur. Chest x-ray shows mild bilateral interstitial edema correlate for possible fluid overload state. Labs on admission reveal a white blood cell count of 14.7, sodium level of 123, BUN of 14 creatinine of 0.66. Her glucose was 128. Patient is afebrile, or normal sinus rhythm, she is slightly hypertensive in the 140s over 90s, she is 93% on room air. Will need to check a proBNP. EKG does reveal normal sinus rhythm with no specific T wave or ST abnormalities. 01/21/24 Surgery was held off yesterday due to the low sodium level anesthesia requesting sodium of 131 or higher to proceed with surgery. Nephrology was consulted. Patient has been continued on normal saline at 75 mls/hr and sodium level today is up to 128. Patient was cleared for surgery medically with low operative risk and by nephrology as long as sodium has been trending upwards. TSH 1.490. Echocardiogram reveals normal LV systolic function. REVIEW OF SYSTEMS: CONSTITUTIONAL: No fever, no malaise, no fatigue. HEENT: No recent visual problems or hearing problems. Denied any sore throat. CARDIOVASCULAR: No chest pain, orthopnea, PND, no palpitations, no syncope. PULMONARY: No shortness of breath, no cough, no hemoptysis. GASTROINTESTINAL: No diarrhea, no nausea, no vomiting, no abdominal pain. NEUROLOGICAL: No headaches, no weakness, no numbness. PHYSICAL EXAMINATION: GENERAL: The patient is alert and oriented x3, not in any acute distress. Well developed, well nourished. HEENT: Pupils are round and equally reacting to light. EOMI. No scleral icterus. No conjunctival pallor. Normocephalic, atraumatic. No pharyngeal erythema. No thyromegaly. CARDIOVASCULAR: S1 and S2 present. No murmurs, rubs, or gallops. PULMONARY: Chest is clear to auscultation, no wheezing or crackles. ABDOMEN: Soft, nontender, nondistended, normoactive bowel sounds. No palpable organomegaly. MUSCULOSKELETAL: No joint swelling or deformity. EXTREMITIES: No cyanosis, clubbing, or pedal edema. NEUROLOGICAL: Gross neurological examination did not reveal any focal deficits. SKIN: No rashes. Assessment and plan Acute fall trauma fracture to the left femur patient is currently pending surgical repair this consultation was placed for preoperative clearance patient has been cleared to undergo surgical repair of the left femur fracture with low surgical risk. Hyponatremia hypovolemic Hypothyroidism resumed on her levothyroxine Hyperlipidemia resumed on statin therapy History of dementia likely vascular patient is on Namenda which has been resumed Congenital hydrocephalus with shunt History of hepatitis C History of chronic back pain History of dysphagia follows with Dr. Chaparro Lynn Chronic nicotine use Anxiety/bipolar/depression patient has been resumed on all of her psychiatric medications GI prophylaxis DVT prophylaxis as per primary Full code Plan Continue normal saline at 75 mls/hr Repeat sodium level tomorrow Nephrology following. Resume all home medications continue cardiac telemetry and monitor blood pressure Patient has been cleared medically for surgical repair of the left femur she is considered low operative risk. As sodium is slowly improving, nephrology has cleared for surgery. The impression and plan of care has been dictated by Radha Menard, Nurse Practitioner as directed. Dr. Delicia MD I have performed a history and physical examination and medical decision making of this patient, discussed the same with the dictator, and agree with the dictators assessment and plan as written, documented as a scribe. Based on total visit time, I have performed more than 50% of this visit. Objective - Vital Signs Vital signs: Vital Signs Temp 98.0 F 01/21/24 07:20 Pulse 81 01/21/24 07:20 Resp 18 01/21/24 07:20 BP 101/69 01/21/24 07:20 Pulse Ox 93 L 01/21/24 07:20 FiO2 Intake & Output 01/20/24 01/21/24 01/21/24 18:59 06:59 18:59 Output Total 900 1650 Balance -900 -1650 Output: Urine 900 1650 Other: Voiding Method Indwelling Catheter Indwelling Catheter # Voids 1 - Labs CBC & Chem 7: 01/20/24 02:26 01/21/24 09:42 Labs: Abnormal Lab Results - Last 24 Hours (Table) 01/20/24 01/21/24 Range/Units 12:26 03:26 Sodium 122 L 125 L (137-145) mmol/L Chloride 95 L (98-107) mmol/L Glucose 111 H 109 H (74-99) mg/dL Calcium 7.4 L 7.2 L (8.4-10.2) mg/dL Assessment and Plan Time with Patient: Less than 30
[2024-01-21] MEDS: LACTATED RINGERS 1,000 ML IV ONE (15:51)
[2024-01-21] MEDS ORDERED: ROCURONIUM 10 MG/ML (5 ML VIAL) IV ONE (17:07)
[2024-01-21] MEDS ORDERED: GLYCOPYRROLATE 0.2 MG/ML 2 ML VIAL ONE (17:07)
[2024-01-21] MEDS ORDERED: LIDOCAINE 1% INJ 10MG/ML (20 ML MDV) ONE (17:07)
[2024-01-21] MEDS ORDERED: fentaNYL (PF) 50 MCG/ML 2 ML AMP ONE (17:07)
[2024-01-21] MEDS ORDERED: MIDAZOLAM 2 MG/2 ML VIAL ONE (17:07)
[2024-01-21] MEDS ORDERED: TRANEXAMIC 1,000 MG/100ML-NACL PREMIX BAG ONE (17:07)
[2024-01-21] MEDS ORDERED: PHENYLEPHRINE 10 MG/ML VIAL ONE (17:07)
[2024-01-21] MEDS ORDERED: HYDROmorphone (PF) 1 MG/ML ONE (17:07)
[2024-01-21] MEDS ORDERED: NEOSTIGMINE 1 MG/ML 10 ML VIAL ONE (17:07)
[2024-01-21] MEDS ORDERED: SUCCINYLCHOLINE CHLORIDE 200 MG/10 ML VIAL IV ONE (17:07)
[2024-01-21] MEDS ORDERED: PROPOFOL 10 MG/ML 20 ML VIAL IV ONE (17:07)
[2024-01-21] MEDS: SODIUM CHLORIDE 0.9% 50 ML with ceFAZolin 2,000 MG IV ONE (17:12)
[2024-01-21] MEDS ORDERED: NALOXONE 0.4 MG/ML 1 ML VIAL IV PRN (19:42)
[2024-01-21] MEDS ORDERED: HYDROcodone/APAP 5-325MG 1 EACH TAB PO PRN (19:42)
[2024-01-21] MEDS ORDERED: diazePAM 5 MG TAB PO PRN (19:42)
[2024-01-21] MEDS ORDERED: ONDANSETRON 4 MG/2 ML VIAL IVP PRN (19:42)
[2024-01-21] MEDS ORDERED: MAGNESIUM HYDROXIDE 2,400 MG/30 ML CUP PO PRN (19:42)
--- NOTE | 2024-01-21 19:42 | P.OP ---
Date of Procedure: 01/21/24 Preoperative Diagnosis: 1. Closed left subtrochanteric/femoral shaft fracture 2. COPD 3. Hyponatremia 4. Prior right hip fracture 5. Dementia Postoperative Diagnosis: Same Procedure(s) Performed: Operative fixation of left subtrochanteric femur fracture with long intramedullary hip screw Implants: Shelbie gamma nail 380x10 mm nail, 85 mm lag screw, 40mm and 45mm distal locking screws Anesthesia: GETA Surgeon: Carlos Alberto Batista Merchandise Pickup/Receiving Associate #1: Som Monteiro Estimated Blood Loss (ml): 200 IV fluids (ml): 700 Urine output (ml): 900 Pathology: none sent Condition: stable Disposition: PACU Indications for Procedure: The patient is a very pleasant 63-year-old female multiple medical problems who fell and sustained a subtrochanteric femur fracture with extension into the fem oral shaft. The patient was admitted under my care. She was seen by internal medicine and nephrology. She was not cleared for surgery on hospital day #2 due to hyponatremia. She was cleared for surgery today. I met with the patient to discuss her injury and treatment options. My recommendation was an open reduction of her femoral shaft fracture followed by placement of a long intramedullary hip screw. We discussed the potential risks and complications of this surgical procedure including but certainly not limited to risks from anesthesia, superficial infection, deep infection, fracture nonunion, fracture malunion, hardware failure including broken hardware, varus collapse with lag screw cut out of the femoral head, progression of hip arthritis, limb length discrepancy, symptomatic hardware, need for further surgery including hardware removal and conversion to arthroplasty, DVT, PE, acute coronary event, pressure ulcers, urinary tract infection, failure to thrive, an inability to regain preinjury level of function, and possibly . The patient and their family understand these potential complications and also awknowledge that other less common complications are possible. They provided both their verbal and written consent to go forward with operative fixation of their hip fracture with an intramedullary hip screw. Description of Procedure: The patient was identified in preoperative holding and the correct operative extremity was marked with my initials. I reviewed the consent form with the patient and all of her questions were answered. The patient was then brought back to the operating room by anesthesia. Anesthesia, preoperative antibiotics, and tranexamic acid were given by the anesthesia team while on the rfabius. Both ankles were padded with webril and boots for the [place] table were applied. The patient was then carefully transferred onto the [place] table. A perineal post was immediately placed. The contralateral arm was secured on a well-padded arm wilson. The ipsilateral arm was draped across the chest and secured with a pillow, foam, and paper tape to allow access to the proximal femur. Nonsterile drapes were applied to the operative extremity. The height of the table was elevated and the contralateral extremity was dropped towards the floor to facilitate imaging. A timeout was performed identifying the correct patient, operative extremity, and procedure. Fluoroscopy was brought in to assess the fracture. A provisional reduction was performed using longitudinal traction, adduction, and internal rotation. An AP and lateral view were obtained to assess the reduction. The operative extremity was then prepped and draped in the standard sterile fashion. I began by marking out the midportion of the fracture with fluoroscopy. A straight lateral incision was made over the proximal to mid shaft of the femur. Skin incision was made with a scalpel and dissection was carried down to the IT band with electrocautery. The IT band was then incised longitudinally in line with the skin incision. I elevated the vastus lateralis off the intermuscular septum down to the fracture. The fracture was identified. An unscrubbed visitor services assistant pulled traction through 100 table and adjusted rotation. The fracture was keyed in and the reduction was held with a Johnson clamp. I then proceeded to place cables above and below the reduction clamp. The reduction was verified with fluoroscopy and appeared almost anatomic. Both cables were tightened, crimped, and cut. The clamp was removed. The reduction held. A straight incision was made at the tip of the greater trochanter and extended proximally for 3 cm. Skin and subcutaneous tissues were incised sharply. The underlying fascia was incised in line with the skin incision. An awl was placed just medial to the tip of the greater trochanter on the AP view and colinear with the canal on the lateral view. A 3.2 mm guide pin was then advanced into the proximal femur. The position of the guidepin was verified with fluoroscopy. An opening reamer and soft tissue cannula were placed over the guidepin and used to open the proximal femur to the level of the lesser trochanter. The 3.2 mm guide pin and opening reamer were removed. A long ball-tipped guidewire was then placed through the proximal opening and advanced down to the distal femur. The position was verified with biplanar fluoroscopy. A measuring device was used to measure the nail to length of 380 mm. I then sequentially reamed in 1 mm increments starting with a 9 mm reamer. A 10 mm reamer generated angelo sheriff elected to use a 10 mm diameter nail. I reamed up to an 11.5 mm reamer. A long gamma nail was dispensed, hooked up to the targeting arm and I verified that the trochar through the targeting arm lined up with the slots on the nail. The nail was then impacted into the proximal femur until the appropriate depth had been reached. A small stab incision was made over the lateral aspect of the femur using the targeting arm as a reference for the lag screw. Incision was carried down to the skin and fascia down to the lateral cortex of the femur. The trocar was then placed up to the lateral cortex of the femur and a guidepin was placed in the low center position on the AP view and centered in the femoral head on the lateral view. Once the position of the guidewire was verified, we reamed to appropriate depth and placed a lag screw over the guidewire and into the femoral head. The position of the lag screw was assessed with fluoroscopy. The guidewire was then removed from the femoral head. The set screw was placed proximally, brought fully down and then released a quarter turn to allow compression. A final incision was made over the lateral femur at the site of the distal interlocking screw, again using the targeting arm as a reference. Using the perfect upper sioux technique to distal interlocking screws were placed. Final fluoroscopic images were taken showing excellent reduction of the fracture and appropriate position of the implants. All wounds were thoroughly irrigated and closed in layers. Sterile dressings were applied. The drapes were taken down, the patient was transferred off the [place] table, and was brought to recovery having tolerated the procedure well. Som Monteiro PA-C was required as a skilled visitor services assistant due to the complexity of surgery for patient positioning, draping, retraction, reduction of fracture, placement of hardware, closure of wounds, and application of dressings. PLAN: The patient can weight-bear as tolerated on their operative extremity. 2 doses of postoperative antibiotics. DVT prophylaxis with aspirin 81 mg twice a day starting the day of surgery. Dressing change on postoperative day #2. Oly reciate Internal Medical assistance with perioperative medical management. Discharge planning in process.
--- NOTE | 2024-01-21 19:50 | FL ---
EXAMINATION TYPE: FL guidance operating room, XR femur LT DATE OF EXAM: 01/21/2024 7:35 PM COMPARISON: Pre Operative Images if available both CT/MRI or plain film CLINICAL INDICATION: Female, 63 years old with history of LEFT FEMORAL NAIL; TECHNIQUE: FL guidance operating room, XR femur LT, multiple fluoroscopic images provided for procedu re. Total fluoroscopy time: 2min 21 sec Total submitted images to PACS: 11 DAP: [id number] mGym2 Gycm2 uGym2 cGycm2 or equivalent. FINDINGS: Fluoroscopic images during internal fixation/arthroplasty demonstrate hardware in appropriate positio n. Hardware appears intact. No immediate complication identified. IMPRESSION: 1. No evidence for intraoperative complication. 2. Please see the operative/procedural note for further details. [facility], , 01/21/2024 7:48 PM
[2024-01-21 20:56] LABS: Basophils # (A) 0.1 k/uL (0-0.2); Basophils % (A) 0 %; Eosinophils # (A) 0.1 k/uL (0-0.7); Eosinophils % (A) 1 %; HCT 28.5 % (34.0-46.0); Lymphocytes % (A) 6 %; MCH 30.5 pg (25.0-35.0); MCHC 32.9 g/dL (31.0-37.0); MCV 92.6 fL (80.0-100.0); Mean Platelet Volume 6.7; Monocytes # (A) 0.8 k/uL (0-1.0); Monocytes % (A) 4 %; Neutrophils # (A) 15.7 k/uL (1.3-7.7); Neutrophils % (A) 87 %; Platelet Count 328 k/uL (150-450); RBC 3.08 m/uL (3.80-5.40); RDW 12.9 % (11.5-15.5); WBC 17.9 k/uL (3.8-10.6)
[2024-01-21] MEDS: APIXABAN 2.5 MG TABLET PO SCH (21:08)
[2024-01-21] MEDS: HYDROmorphone 1 MG/ML 1 ML SYRINGE IVP PRN (21:15)
[2024-01-21] MEDS: SENNOSIDES-DOCUSATE SODIUM 1 EACH TAB PO SCH (21:15)
[2024-01-21 21:18] LABS: HGB 9.4 gm/dL (11.4-16.0)
[2024-01-22] MEDS: HYDROcodone/APAP 10-325MG 1 EACH TAB PO PRN (00:06)
[2024-01-22] MEDS: HYDROmorphone 0.5 MG/0.5 ML SYRINGE IVP PRN (02:27)
--- NOTE | 2024-01-22 08:25 | P.PN ---
Subjective Progress Note Date: 01/22/24 The patient is resting comfortably in bed. She has pain in her left thigh is otherwise doing well. No acute events per nursing. The patient denies chest pain or shortness of breath. Objective - Vital Signs Vital signs: Vital Signs Temp 98 F 01/22/24 07:36 Pulse 87 01/22/24 07:36 Resp 19 01/22/24 07:36 BP 97/64 01/22/24 07:36 Pulse Ox 98 01/22/24 07:36 FiO2 Intake & Output 01/21/24 01/22/24 01/22/24 18:59 06:59 18:59 Intake Total 750 75 Output Total 1325 Balance 750 -1250 Intake: IV 750 75 Output: Urine 1225 Estimated Blood Loss 100 Other: Voiding Method Indwelling Catheter Indwelling Catheter - Exam The patient is resting comfortably in her bed. She is alert and able to answer questions. She damage is nonlabored breathing with symmetric chest expansion. Focused exam of the left lower extremity was conducted. On inspection there are clean and intact dressings over the left hip and thigh and knee. There is a small amount of strikethrough on the superior and middle dressings. The thigh is swollen but soft and compressible. Femoral nerve function is intact. The patient is able to actively plantar flex and dorsiflex her ankle and her toes. The leg is warm and well perfused. She has a palpable dorsalis pedis pulse. - Labs CBC & Chem 7: 01/21/24 20:42 01/21/24 09:42 Labs: Abnormal Lab Results - Last 24 Hours (Table) 01/21/24 01/21/24 01/21/24 Range/Units 09:42 10:50 20:42 WBC 17.9 H (3.8-10.6) k/uL RBC 3.08 L (3.80-5.40) m/uL Hgb 9.4 L D (11.4-16.0) gm/dL Hct 28.5 L (34.0-46.0) % Neutrophils # 15.7 H (1.3-7.7) k/uL Sodium 128 L (137-145) mmol/L Urine Osmolality 270 L (400-1100) mOsm/kg Assessment and Plan Assessment: Postoperative day #1 status post left subtrochanteric fracture fixation with a long intramedullary hip screw Multiple medical problems Plan: 1. Weight-bear as tolerated left lower extremity with assistance and a walker 2. 2 doses postoperative antibiotics 3. DVT prophylaxis with Eliquis 2.5 mg BID x 4 weeks 4. Leave surgical dressing in place 5. Internal medicine and nephrology for perioperative medical management 6. Discharge planning
[2024-01-22 09:07] LABS: African American GFR (CKD) >90 (>60 ml/min/1.73 sqM); Anion Gap 0 mmol/L; Blood Urea Nitrogen 6 mg/dL (7-17); Calcium 7.1 mg/dL (8.4-10.2); Carbon Dioxide 28 mmol/L (22-30); Chloride 106 mmol/L (98-107); Glucose 91 mg/dL (74-99); Non-African American GFR(CKD) >90 (>60 ml/min/1.73 sqM); Potassium 4.1 mmol/L (3.5-5.1); Sodium 134 mmol/L (137-145)
--- NOTE | 2024-01-22 11:11 | P.PN ---
Subjective patient is seen for follow-up for hyponatremia, hypovolemic and improved with normal saline. Serum sodium is 134 today. No significant complaints today Tolerating oral intake. Objective - Vital Signs Vital signs: Vital Signs Temp 98 F 01/22/24 07:36 Pulse 87 01/22/24 07:36 Resp 19 01/22/24 07:36 BP 97/64 01/22/24 07:36 Pulse Ox 98 01/22/24 07:36 FiO2 Intake & Output 01/21/24 01/22/24 01/22/24 18:59 06:59 18:59 Intake Total 750 75 Output Total 1325 Balance 750 -1250 Intake: IV 750 75 Output: Urine 1225 Estimated Blood Loss 100 Other: Voiding Method Indwelling Catheter Indwelling Catheter - Exam patient is awake, comfortable, no acute distress. Examination of the heart S1 and S2 Examination of the lungs bilateral breath sounds are heard Abdomen is soft nontender Examination lower extremity shows no significant edema - Labs CBC & Chem 7: 01/21/24 20:42 01/22/24 08:30 Labs: Abnormal Lab Results - Last 24 Hours (Table) 01/21/24 01/21/24 01/22/24 Range/Units 10:50 20:42 08:30 WBC 17.9 H (3.8-10.6) k/uL RBC 3.08 L (3.80-5.40) m/uL Hgb 9.4 L D (11.4-16.0) gm/dL Hct 28.5 L (34.0-46.0) % Neutrophils # 15.7 H (1.3-7.7) k/uL Sodium 134 L (137-145) mmol/L BUN 6 L (7-17) mg/dL Calcium 7.1 L (8.4-10.2) mg/dL Urine Osmolality 270 L (400-1100) mOsm/kg Assessment and Plan Assessment: 1. Hyponatremia, hypovolemic and improving with normal saline. 2. Status post fall with fracture of left femur #3. History of bipolar disorder Plan: continue with normal saline.
--- NOTE | 2024-01-22 11:56 | P.PN ---
Subjective Progress Note Date: 01/22/24 This is a 63-year-old male with medical history significant for hyperlipidemia, hypothyroidism, congenital hydrocephalus with shunt, hepatitis C, dementia, anxiety/bipolar/depression. Patient came into the hospital secondary to a fall while slipping out of her crocs onto her left hip. She is unable to ambulate out of the fall reports having 10 out of 10 pain in the left hip. Femur x-ray reveals an acute comminuted displaced subtrochanteric fracture of the left proximal femur. Chest x-ray shows mild bilateral interstitial edema correlate for possible fluid overload state. Labs on admission reveal a white blood cell count of 14.7, sodium level of 123, BUN of 14 creatinine of 0.66. Her glucose was 128. Patient is afebrile, or normal sinus rhythm, she is slightly hypertensive in the 140s over 90s, she is 93% on room air. Will need to check a proBNP. EKG does reveal normal sinus rhythm with no specific T wave or ST abnormalities. 01/21/24 Surgery was held off yesterday due to the low sodium level anesthesia requesting sodium of 131 or higher to proceed with surgery. Nephrology was consulted. Patient has been continued on normal saline at 75 mls/hr and sodium level today is up to 128. Patient was cleared for surgery medically with low operative risk and by nephrology as long as sodium has been trending upwards. TSH 1.490. Echocardiogram reveals normal LV systolic function. 01/22/2024 Patient is eval today she is postoperative day #1 surgical repair of the left subtrochanter fracture with a long IM hip screw. Sodium level today is 134 patient continues on normal saline at 75 mL/h no acute complaints today she is reporting moderate pain to the left leg. She did work with physical therapy and is sitting up in the chair today. Pending PT OT evaluation and will likely requ chhaya subacute rehab on discharge and patient thinks she will need rehab. REVIEW OF SYSTEMS: CONSTITUTIONAL: No fever, no malaise, no fatigue. HEENT: No recent visual problems or hearing problems. Denied any sore throat. CARDIOVASCULAR: No chest pain, orthopnea, PND, no palpitations, no syncope. PULMONARY: No shortness of breath, no cough, no hemoptysis. GASTROINTESTINAL: No diarrhea, no nausea, no vomiting, no abdominal pain. NEUROLOGICAL: No headaches, no weakness, no numbness. PHYSICAL EXAMINATION: GENERAL: The patient is alert and oriented x3, not in any acute distress. Well developed, well nourished. HEENT: Pupils are round and equally reacting to light. EOMI. No scleral icterus. No conjunctival pallor. Normocephalic, atraumatic. No pharyngeal erythema. No thyromegaly. CARDIOVASCULAR: S1 and S2 present. No murmurs, rubs, or gallops. PULMONARY: Chest is clear to auscultation, no wheezing or crackles. ABDOMEN: Soft, nontender, nondistended, normoactive bowel sounds. No palpable organomegaly. MUSCULOSKELETAL: No joint swelling or deformity. EXTREMITIES: No cyanosis, clubbing, or pedal edema. NEUROLOGICAL: Gross neurological examination did not reveal any focal deficits. SKIN: No rashes. Assessment and plan Acute fall trauma fracture to the left femur patient is currently pending surgical repair this consultation was placed for preoperative clearance patient has been cleared to undergo surgical repair of the left femur fracture with low surgical risk. Postoperative day #1 surgical repair of the left subtrochanteric femur with a long IM hip screw Hyponatremia hypovolemic grooving Hypothyroidism resumed on her levothyroxine Hyperlipidemia resumed on statin therapy History of dementia likely vascular patient is on Namenda which has been resumed Congenital hydrocephalus with shunt History of hepatitis C History of chronic back pain History of dysphagia follows with Dr. Chaparro Lynn Chronic nicotine use Anxiety/bipolar/depression patient has been resumed on all of her psychiatric medications GI prophylaxis DVT prophylaxis as per primary Full code Plan Continue normal saline at 75 mls/hr Sodium level up to 134 will repeat again tomorrow Nephrology following. Resume all home medications continue cardiac telemetry and monitor blood pressure Patient has been cleared medically for surgical repair of the left femur she is considered low operative risk. As sodium is slowly improving, nephrology has cleared for surgery. PT OT evaluation patient will likely require subacute rehab and social work to evaluate this patient tomorrow for discharge planning The impression and plan of care has been dictated by Radha Menard, Nurse Practitioner as directed. Dr. Delicia MD I have performed a history and physical examination and medical decision making of this patient, discussed the same with the dictator, and agree with the dictators assessment and plan as written, documented as a scribe. Based on total visit time, I have performed more than 50% of this visit. Objective - Vital Signs Vital signs: Vital Signs Temp 98 F 01/22/24 07:36 Pulse 87 01/22/24 07:36 Resp 19 01/22/24 07:36 BP 97/64 01/22/24 07:36 Pulse Ox 98 01/22/24 07:36 FiO2 Intake & Output 01/21/24 01/22/24 01/22/24 18:59 06:59 18:59 Intake Total 750 75 Output Total 1325 Balance 750 -1250 Intake: IV 750 75 Output: Urine 1225 Estimated Blood Loss 100 Other: Voiding Method Indwelling Catheter Indwelling Catheter - Labs CBC & Chem 7: 01/21/24 20:42 01/22/24 08:30 Labs: Abnormal Lab Results - Last 24 Hours (Table) 01/21/24 01/21/24 01/22/24 Range/Units 10:50 20:42 08:30 WBC 17.9 H (3.8-10.6) k/uL RBC 3.08 L (3.80-5.40) m/uL Hgb 9.4 L D (11.4-16.0) gm/dL Hct 28.5 L (34.0-46.0) % Neutrophils # 15.7 H (1.3-7.7) k/uL Sodium 134 L (137-145) mmol/L BUN 6 L (7-17) mg/dL Calcium 7.1 L (8.4-10.2) mg/dL Urine Osmolality 270 L (400-1100) mOsm/kg Assessment and Plan Time with Patient: Less than 30
[2024-01-23] MEDS: hydrOXYzine pamoate 25 MG CAP PO PRN (06:27)
--- NOTE | 2024-01-23 09:06 | P.PN ---
Subjective patient is seen for follow-up for hyponatremia, hypovolemic and improved with normal saline. Serum sodium is 134 yesterday. No significant complaints today Tolerating oral intake. Objective - Vital Signs Vital signs: Vital Signs Temp 98.4 F 01/23/24 07:10 Pulse 88 01/23/24 07:10 Resp 17 01/23/24 07:10 BP 100/66 01/23/24 07:10 Pulse Ox 96 01/23/24 08:25 FiO2 Intake & Output 01/22/24 01/23/24 01/23/24 18:59 06:59 18:59 Intake Total 1620 Output Total 450 800 Balance -450 820 Intake: Oral 1620 Output: Urine 450 800 Other: Voiding Method Indwelling Catheter Indwelling Catheter - Exam patient is awake, comfortable, no acute distress. Examination of the heart S1 and S2 Examination of the lungs bilateral breath sounds are heard Abdomen is soft nontender Examination lower extremity shows no significant edema - Labs CBC & Chem 7: 01/21/24 20:42 01/22/24 08:30 Labs: Abnormal Lab Results - Last 24 Hours (Table) 01/22/24 Range/Units 08:30 Sodium 134 L (137-145) mmol/L BUN 6 L (7-17) mg/dL Calcium 7.1 L (8.4-10.2) mg/dL Assessment and Plan Assessment: 1. Hyponatremia, hypovolemic and improving with normal saline. 2. Status post fall with fracture of left femur, awaiting surgery #3. History of bipolar disorder Plan: continue with normal saline. Follow-up on labs from today.
[2024-01-23 10:25] LABS: Blood Urea Nitrogen 7.5 mg/dL (9.0-27.0); Glucose 112 mg/dL (70-110)
[2024-01-23 10:26] LABS: Calcium 7.5 mg/dL (8.7-10.3); Carbon Dioxide 23.7 mmol/L (21.6-31.8); Chloride 103 mmol/L (96-109); Potassium 4.1 mmol/L (3.5-5.5); Sodium 135 mmol/L (135-145)
--- NOTE | 2024-01-23 11:50 | P.PN ---
Subjective Progress Note Date: 01/23/24 This is a 63-year-old male with medical history significant for hyperlipidemia, hypothyroidism, congenital hydrocephalus with shunt, hepatitis C, dementia, anxiety/bipolar/depression. Patient came into the hospital secondary to a fall while slipping out of her crocs onto her left hip. She is unable to ambulate out of the fall reports having 10 out of 10 pain in the left hip. Femur x-ray reveals an acute comminuted displaced subtrochanteric fracture of the left proximal femur. Chest x-ray shows mild bilateral interstitial edema correlate for possible fluid overload state. Labs on admission reveal a white blood cell count of 14.7, sodium level of 123, BUN of 14 creatinine of 0.66. Her glucose was 128. Patient is afebrile, or normal sinus rhythm, she is slightly hypertensive in the 140s over 90s, she is 93% on room air. Will need to check a proBNP. EKG does reveal normal sinus rhythm with no specific T wave or ST abnormalities. 01/21/24 Surgery was held off yesterday due to the low sodium level anesthesia requesting sodium of 131 or higher to proceed with surgery. Nephrology was consulted. Patient has been continued on normal saline at 75 mls/hr and sodium level today is up to 128. Patient was cleared for surgery medically with low operative risk and by nephrology as long as sodium has been trending upwards. TSH 1.490. Echocardiogram reveals normal LV systolic function. 01/22/2024 Patient is eval today she is postoperative day #1 surgical repair of the left subtrochanter fracture with a long IM hip screw. Sodium level today is 134 patient continues on normal saline at 75 mL/h no acute complaints today she is reporting moderate pain to the left leg. She did work with physical therapy and is sitting up in the chair today. Pending PT OT evaluation and will likely requ chhaya subacute rehab on discharge and patient thinks she will need rehab. 01/23/2024 Patient is evaluated today postoperative day #2 surgical repair of the left femur fracture. Patient remains on normal saline. No acute complaints. Sodium level is 135 today. Nephrology has been following. Patient will need subacute rehab. Medically she is stable. REVIEW OF SYSTEMS: CONSTITUTIONAL: No fever, no malaise, no fatigue. HEENT: No recent visual problems or hearing problems. Denied any sore throat. CARDIOVASCULAR: No chest pain, orthopnea, PND, no palpitations, no syncope. PULMONARY: No shortness of breath, no cough, no hemoptysis. GASTROINTESTINAL: No diarrhea, no nausea, no vomiting, no abdominal pain. NEUROLOGICAL: No headaches, no weakness, no numbness. PHYSICAL EXAMINATION: GENERAL: The patient is alert and oriented x3, not in any acute distress. Well developed, well nourished. HEENT: Pupils are round and equally reacting to light. EOMI. No scleral icterus. No conjunctival pallor. Normocephalic, atraumatic. No pharyngeal erythema. No thyromegaly. CARDIOVASCULAR: S1 and S2 present. No murmurs, rubs, or gallops. PULMONARY: Chest is clear to auscultation, no wheezing or crackles. ABDOMEN: Soft, nontender, nondistended, normoactive bowel sounds. No palpable organomegaly. MUSCULOSKELETAL: No joint swelling or deformity. EXTREMITIES: No cyanosis, clubbing, or pedal edema. NEUROLOGICAL: Gross neurological examination did not reveal any focal deficits. SKIN: No rashes. Assessment and plan Acute fall trauma fracture to the left femur patient is currently pending [place] gical repair this consultation was placed for preoperative clearance patient has been cleared to undergo surgical repair of the left femur fracture with low surgical risk. Postoperative day #2 surgical repair of the left subtrochanteric femur with a long IM hip screw Hyponatremia hypovolemic grooving Hypothyroidism resumed on her levothyroxine Hyperlipidemia resumed on statin therapy History of dementia likely vascular patient is on Namenda which has been resumed Congenital hydrocephalus with shunt History of hepatitis C History of chronic back pain History of dysphagia follows with Dr. Chaparro Nunes Chronic nicotine use Anxiety/bipolar/depression patient has been resumed on all of her psychiatric medications GI prophylaxis DVT prophylaxis as per primary Full code Plan Continue normal saline at 75 mls/hr Sodium level normal at 135. Nephrology following. Resume all home medications continue cardiac telemetry and monitor blood pressure Patient has been cleared medically for surgical repair of the left femur she is considered low operative risk. PT OT evaluation patient will likely require subacute rehab and social work to evaluate this patient tomorrow for discharge planning Medically she is stable to discharge. The impression and plan of care has been dictated by Radha Menard, Nurse Practitioner as directed. Dr. Delicia MD I have performed a history and physical examination and medical decision making of this patient, discussed the same with the dictator, and agree with the dictators assessment and plan as written, documented as a scribe. Based on total visit time, I have performed more than 50% of this visit. Objective - Vital Signs Vital signs: Vital Signs Temp 98.4 F 01/23/24 07:10 Pulse 88 01/23/24 07:10 Resp 17 01/23/24 07:10 BP 100/66 01/23/24 07:10 Pulse Ox 96 01/23/24 08:25 FiO2 Intake & Output 01/22/24 01/23/24 01/23/24 18:59 06:59 18:59 Intake Total 1620 Output Total 450 800 Balance -450 820 Intake: Oral 1620 Output: Urine 450 800 Other: Voiding Method Indwelling Catheter Indwelling Catheter - Labs CBC & Chem 7: 01/21/24 20:42 01/23/24 03:32 Labs: Abnormal Lab Results - Last 24 Hours (Table) 01/23/24 Range/Units 03:32 BUN 7.5 L (9.0-27.0) mg/dL Glucose 112 H (70-110) mg/dL Calcium 7.5 L (8.7-10.3) mg/dL Assessment and Plan Time with Patient: Less than 30
[2024-01-23 11:54] LABS: Basophils % (A) 0 %; Eosinophils # (A) 0.1 k/uL (0-0.7); Eosinophils % (A) 1 %; HCT 22.2 % (34.0-46.0); Hypochromasia Slight; Lymphocytes # (A) 1.5 k/uL (1.0-4.8); Lymphocytes % (A) 15 %; MCHC 33.1 g/dL (31.0-37.0); MCV 93.7 fL (80.0-100.0); Mean Platelet Volume 8.5; Monocytes # (A) 0.8 k/uL (0-1.0); Monocytes % (A) 8 %; Neutrophils % (A) 71 %; Platelet Count 292 k/uL (150-450); RBC 2.37 m/uL (3.80-5.40); RDW 13.3 % (11.5-15.5); WBC 9.9 k/uL (3.8-10.6)
[2024-01-23 11:57] LABS: HGB 7.4 gm/dL (11.4-16.0)
--- NOTE | 2024-01-23 15:25 | P.PN ---
Subjective Progress Note Date: 01/23/24 No acute events per nursing. Patient is complaining of pain in her left thigh but it is tolerable. Objective - Vital Signs Vital signs: Vital Signs Temp 98.4 F 01/23/24 07:10 Pulse 88 01/23/24 07:10 Resp 17 01/23/24 07:10 BP 100/66 01/23/24 07:10 Pulse Ox 96 01/23/24 08:25 FiO2 Intake & Output 01/22/24 01/23/24 01/23/24 18:59 06:59 18:59 Intake Total 1620 Output Total 450 800 400 Balance -450 820 -400 Intake: Oral 1620 Output: Urine 450 800 400 Uretheral (Craig) 400 Other: Voiding Method Indwelling Catheter Indwelling Catheter Indwelling Catheter - Exam Resting comfortably in bed. Alert and able to answer questions. There is swelling in the left thigh but it is soft and compressible. Dressings are intact with no drainage or strike through. The real nerve function is intact. She is able to actively plantarflex her ankle and her toes. Her foot is warm and well perfused with brisk capillary refill - Labs CBC & Chem 7: 01/23/24 03:32 01/23/24 03:32 Labs: Abnormal Lab Results - Last 24 Hours (Table) 01/23/24 01/23/24 Range/Units 03:32 03:32 RBC 2.37 L (3.80-5.40) m/uL Hgb 7.4 L D (11.4-16.0) gm/dL Hct 22.2 L (34.0-46.0) % BUN 7.5 L (9.0-27.0) mg/dL Glucose 112 H (70-110) mg/dL Calcium 7.5 L (8.7-10.3) mg/dL Assessment and Plan Assessment: Postoperative day #2 status post left long cephalo-medullary nail for subtrochanteric femoral shaft fracture Plan: The new treatment as outlined yesterday. The patient can weight-bear as tolerated with assistance and a walker on her left leg. Patient is planning to discharge back to [facility]. Discharge planning in progress.
[2024-01-24 08:35] VITALS: RESP 17
--- NOTE | 2024-01-24 09:26 | P.PN ---
Subjective Patient is to relatively well this morning. She has pain in her left thigh as expected. No acute events per nursing. Objective - Vital Signs Vital signs: Vital Signs Temp 98.2 F 01/24/24 07:05 Pulse 79 01/24/24 07:05 Resp 17 01/24/24 07:05 BP 108/72 01/24/24 07:05 Pulse Ox 95 01/24/24 07:05 FiO2 Intake & Output 01/23/24 01/24/24 01/24/24 18:59 06:59 18:59 Intake Total 320 200 Output Total 800 Balance -480 200 Intake: Oral 320 200 Output: Urine 800 Straight 400 Uretheral (Craig) 400 Other: Voiding Method Indwelling Catheter # Voids 1 - Exam This is resting comfortably in bed. She is alert and able to answer questions. A focused exam of the left lower extremity was conducted. Her dressings are intact with no drainage or strike through. There is moderate swelling throughout the thigh but is soft and compressible. Femoral nerve function is intact. She is able to actively plantar flex and dorsiflex her ankle and her toes. Foot is warm and well perfused - Labs CBC & Chem 7: 01/23/24 03:32 01/23/24 03:32 Labs: Abnormal Lab Results - Last 24 Hours (Table) 01/23/24 01/23/24 Range/Units 03:32 03:32 RBC 2.37 L (3.80-5.40) m/uL Hgb 7.4 L D (11.4-16.0) gm/dL Hct 22.2 L (34.0-46.0) % BUN 7.5 L (9.0-27.0) mg/dL Glucose 112 H (70-110) mg/dL Calcium 7.5 L (8.7-10.3) mg/dL Assessment and Plan Assessment: Post operative day #3 status post long cephalo-medullary nail for subtrochanteric femoral shaft fracture Multiple medical problems Plan: Continue treatment as outlined previously. The patient can weight-bear as tolerated on her left leg. I would encourage mobilization out of bed to a chair. DVT prophylaxis with Eliquis. She is okay to discharge from an orthopedic standpoint when approved for [facility] and medically stable.
--- NOTE | 2024-01-24 10:01 | P.PN ---
Subjective Patient is seen in follow-up for hyponatremia. Sodium level 135 today. Craig catheter removed yesterday. Has been voiding. Oral intake fair. Vital signs are stable. General: No acute distress. HEENT: Head exam is unremarkable. LUNGS: No audible rhonchi or wheezes. HEART: Rate and Rhythm are regular. ABDOMEN: Nontender. EXTREMITITES: No edema. Objective - Vital Signs Vital signs: Vital Signs Temp 98.2 F 01/24/24 07:05 Pulse 79 01/24/24 07:05 Resp 17 01/24/24 07:05 BP 108/72 01/24/24 07:05 Pulse Ox 95 01/24/24 07:05 FiO2 Intake & Output 01/23/24 01/24/24 01/24/24 18:59 06:59 18:59 Intake Total 320 200 Output Total 800 Balance -480 200 Intake: Oral 320 200 Output: Urine 800 Straight 400 Uretheral (Craig) 400 Other: Voiding Method Indwelling Catheter # Voids 1 - Labs CBC & Chem 7: 01/23/24 03:32 01/23/24 03:32 Labs: Abnormal Lab Results - Last 24 Hours (Table) 01/23/24 01/23/24 Range/Units 03:32 03:32 RBC 2.37 L (3.80-5.40) m/uL Hgb 7.4 L D (11.4-16.0) gm/dL Hct 22.2 L (34.0-46.0) % BUN 7.5 L (9.0-27.0) mg/dL Glucose 112 H (70-110) mg/dL Calcium 7.5 L (8.7-10.3) mg/dL Assessment and Plan Plan: Assessment: 1. Hypovolemic hyponatremia improved with IV fluids. On Wellbutrin and Cymbalta which can induce SIADH. Urine sodium 52 and urine osmolality 270. TSH normal. UA benign. 2. Left femoral fracture status post surgical repair January 21, 2024. 3. History of bipolar disorder. Plan: Encouraged oral intake. 1500 cc fluid restriction. Ensure twice daily. Hep-Lock IV fluids.
--- NOTE | 2024-01-24 12:05 | P.DS ---
Providers Date of admission: 01/20/24 02:08 Attending physician: Carlos Alberto Batista Consults: 01/20/24 02:05 Consult Physician Routine Consulting Provider: Kendrick Gavin Consult Reason/Comments: Medical Clearance Do you want consulting provider notified?: Yes, Notify in am 01/21/24 08:36 Consult Physician Urgent Consulting Provider: Marilyn Coughlin Consult Reason/Comments: hyponatremia, needs Na to be over 131 for surgery Do you want consulting provider notified?: Yes Primary care physician: Cristiana Diaz DO Hospital Course: The patient sustained a left femur fracture. She was admitted under my care. She had hyponatremia and was cleared for surgery on hospital day #3. Her surgery was uncomplicated. Following surgery she did well from an orthopaedic stand point. She was started on Eliquis for DVT prophylaxis. IM and nephrology managed her medical issues. She was ultimately cleared for discharge to [facility]. Patient Condition at Discharge: Stable Plan - Discharge Summary Discharge Rx Participant: Yes New Discharge Prescriptions: New Apixaban [Eliquis] 2.5 mg PO BID #30 tab Docusate [Colace] 100 mg PO BID #60 capsule HYDROcodone/APAP 5-325MG [Raymond 5-325] 1 - 2 tab PO Q6HR PRN #48 tab PRN Reason: Pain Continue Docusate [Colace] 100 mg PO BID Calcium Carbonate [Tums] 500 mg PO DAILY Atorvastatin Calcium 20 mg PO HS ARIPiprazole [Abilify] 5 mg PO DAILY Fluticasone Propionate [Fluticasone Propionate [place] 50 mcg Nasal [place]] 1 spr EA NOSTRIL DAILY@0700 Linaclotide [Linzess] 72 mcg PO DAILY traZODone HCL 150 mg PO HS Acetaminophen [Tylenol Arthritis] 650 mg PO BID DULoxetine HCL [Cymbalta] 60 mg PO DAILY Maalox Plus 30 mg PO Q6H PRN PRN Reason: Heartburn Benzonatate [Tessalon Perle] 200 mg PO TID@0700,1300,1900 buPROPion HCL [buPROPion HCL XL] 300 mg PO DAILY Donepezil [Aricept] 5 mg PO HS Alendronate Sodium 70 mg PO OCAMPO@0500 Cyclobenzaprine HCl 10 mg PO BID Memantine [Namenda] 10 mg PO BID polyethylene glycoL 3350 [Miralax] 17 gm PO DAILY Oxybutynin Chloride [oxyBUTYnin chloride ER] 10 mg PO DAILY Omeprazole 20 mg PO BID guaiFENesin [Mucinex] 600 mg PO BID@0700,1900 Midodrine HCl [ProAmantine] 2.5 mg PO TID@0700,1300,1900 Changed traMADol HCL 50 mg PO BID PRN #4 tab PRN Reason: Pain Discontinued Naproxen Sodium [Aleve] 220 mg PO Q8H PRN PRN Reason: Pain Azithromycin [Zithromax Z Pack] See Taper PO DAILY predniSONE See Taper PO DAILY Discharge Medication List ARIPiprazole [Abilify] 5 mg PO DAILY 09/11/23 [History] Acetaminophen [Tylenol Arthritis] 650 mg PO BID 09/11/23 [History] Alendronate Sodium 70 mg PO OCAMPO@0500 09/11/23 [History] Atorvastatin Calcium 20 mg PO HS 09/11/23 [History] Calcium Carbonate [Tums] 500 mg PO DAILY 09/11/23 [History] Cyclobenzaprine HCl 10 mg PO BID 09/11/23 [History] DULoxetine HCL [Cymbalta] 60 mg PO DAILY 09/11/23 [History] Docusate [Colace] 100 mg PO BID 09/11/23 [History] Donepezil [Aricept] 5 mg PO HS 09/11/23 [History] Fluticasone Propionate [Fluticasone Propionate [place] 50 mcg Nasal [place]] 1 spr EA NOSTRIL DAILY@0700 09/11/23 [History] Linaclotide [Linzess] 72 mcg PO DAILY 09/11/23 [History] Memantine [Namenda] 10 mg PO BID 09/11/23 [History] Omeprazole 20 mg PO BID 09/11/23 [History] Oxybutynin Chloride [oxyBUTYnin chloride ER] 10 mg PO DAILY 09/11/23 [History] buPROPion HCL [buPROPion HCL XL] 300 mg PO DAILY 09/11/23 [History] polyethylene glycoL 3350 [Miralax] 17 gm PO DAILY 09/11/23 [History] traZODone HCL 150 mg PO HS 09/11/23 [History] Maalox Plus 30 mg PO Q6H PRN 11/19/23 [History] Benzonatate [Tessalon Perle] 200 mg PO TID@0700,1300,1900 01/20/24 [History] Midodrine HCl [ProAmantine] 2.5 mg PO TID@0700,1300,1900 01/20/24 [History] guaiFENesin [Mucinex] 600 mg PO BID@0700,1900 01/20/24 [History] Docusate [Colace] 100 mg PO BID #60 capsule 01/22/24 [Rx] traMADol HCL 50 mg PO BID PRN #4 tab 01/23/24 [Rx] Apixaban [Eliquis] 2.5 mg PO BID #30 tab 01/24/24 [Rx] HYDROcodone/APAP 5-325MG [Raymond 5-325] 1 - 2 tab PO Q6HR PRN #48 tab 01/24/24 [Rx] Follow up Appointment(s)/Referral(s): Marilyn Coughlin MD [STAFF PHYSICIAN] - 1 Week Cristiana Diaz DO [Primary Care Provider] - 1-2 days Carlos Alberto Batista MD [Medical Doctor] - 2 Weeks Ambulatory/Diagnostic Orders: Basic Metabolic Panel [LAB.AMB] Location: None Selected Complete Blood Count w/diff [LAB.AMB] Time Frame: 3 Days, Location: None Selected Activity/Diet/Wound Care/Special Instructions: 1. Weight-bear as tolerated on your operative extremity unless instructed otherwise. Use a walker or other assistive device to ambulate. 2. Leave surgical dressing in place. If your dressing becomes saturated with blood, there is drainage, or the dressing becomes loose please contact the office. 3. It is okay to shower with your surgical dressing, but do not submerge in water (no hot tubs, bath's, swimming etc.) 4. Make sure to take her blood clot prevention medication as prescribed (aspirin, Eliquis, Xarelto, and Plavix are commonly prescribed medications for blood clot prevention) 5. While taking Raymond or Percocet for pain make sure you're taking a stool softener (Colace) and drink lots of water. 6. Keep all follow-up appointments as scheduled. You will usually be seen in 1-2 weeks following surgery. 7. Please contact the office with any questions or concerns [phone] Discharge Disposition: TRANSFER TO SNF/ECF
[2024-01-24] MEDS: diazePAM 5 MG TAB PO PRN (13:25)
--- NOTE | 2024-01-24 13:36 | P.PN ---
Subjective Progress Note Date: 01/24/24 This is a 63-year-old male with medical history significant for hyperlipidemia, hypothyroidism, congenital hydrocephalus with shunt, hepatitis C, dementia, anxiety/bipolar/depression. Patient came into the hospital secondary to a fall while slipping out of her crocs onto her left hip. She is unable to ambulate out of the fall reports having 10 out of 10 pain in the left hip. Femur x-ray reveals an acute comminuted displaced subtrochanteric fracture of the left proximal femur. Chest x-ray shows mild bilateral interstitial edema correlate for possible fluid overload state. Labs on admission reveal a white blood cell count of 14.7, sodium level of 123, BUN of 14 creatinine of 0.66. Her glucose was 128. Patient is afebrile, or normal sinus rhythm, she is slightly hypertensive in the 140s over 90s, she is 93% on room air. Will need to check a proBNP. EKG does reveal normal sinus rhythm with no specific T wave or ST abnormalities. 01/21/24 Surgery was held off yesterday due to the low sodium level anesthesia requesting sodium of 131 or higher to proceed with surgery. Nephrology was consulted. Patient has been continued on normal saline at 75 mls/hr and sodium level today is up to 128. Patient was cleared for surgery medically with low operative risk and by nephrology as long as sodium has been trending upwards. TSH 1.490. Echocardiogram reveals normal LV systolic function. 01/22/2024 Patient is eval today she is postoperative day #1 surgical repair of the left subtrochanter fracture with a long IM hip screw. Sodium level today is 134 patient continues on normal saline at 75 mL/h no acute complaints today she is reporting moderate pain to the left leg. She did work with physical therapy and is sitting up in the chair today. Pending PT OT evaluation and will likely requ chhaya subacute rehab on discharge and patient thinks she will need rehab. 01/23/2024 Patient is evaluated today postoperative day #2 surgical repair of the left femur fracture. Patient remains on normal saline. No acute complaints. Sodium level is 135 today. Nephrology has been following. Patient will need subacute rehab. Medically she is stable. 01/24/2024 Patient is evaluated in follow up today. Postoperative day #3 surgical repair of the left femur fracture. Pain is well controlled. She is pending discharge to subacute rehab. Hopefully today. Medically she is cleared for discharge. Continu e all same home medications. REVIEW OF SYSTEMS: CONSTITUTIONAL: No fever, no malaise, no fatigue. HEENT: No recent visual problems or hearing problems. Denied any sore throat. CARDIOVASCULAR: No chest pain, orthopnea, PND, no palpitations, no syncope. PULMONARY: No shortness of breath, no cough, no hemoptysis. GASTROINTESTINAL: No diarrhea, no nausea, no vomiting, no abdominal pain. NEUROLOGICAL: No headaches, no weakness, no numbness. PHYSICAL EXAMINATION: GENERAL: The patient is alert and oriented x3, not in any acute distress. Well developed, well nourished. HEENT: Pupils are round and equally reacting to light. EOMI. No scleral icterus. No conjunctival pallor. Normocephalic, atraumatic. No pharyngeal erythema. No thyromegaly. CARDIOVASCULAR: S1 and S2 present. No murmurs, rubs, or gallops. PULMONARY: Chest is clear to auscultation, no wheezing or crackles. ABDOMEN: Soft, nontender, nondistended, normoactive bowel sounds. No palpable organomegaly. MUSCULOSKELETAL: No joint swelling or deformity. EXTREMITIES: No cyanosis, clubbing, or pedal edema. NEUROLOGICAL: Gross neurological examination did not reveal any focal deficits. SKIN: No rashes. Assessment and plan Acute fall trauma fracture to the left femur patient is currently pending surgical repair this consultation was placed for preoperative clearance patient has been cleared to undergo surgical repair of the left femur fracture with low surgical risk. Postoperative day #2 surgical repair of the left subtrochanteric femur with a long IM hip screw Hyponatremia hypovolemic grooving Hypothyroidism resumed on her levothyroxine Hyperlipidemia resumed on statin therapy History of dementia likely vascular patient is on Namenda which has been resumed Congenital hydrocephalus with shunt History of hepatitis C History of chronic back pain History of dysphagia follows with Dr. Chaparro Nunes Chronic nicotine use Anxiety/bipolar/depression patient has been resumed on all of her psychiatric medications GI prophylaxis DVT prophylaxis as per primary Full code Plan Continue normal saline at 75 mls/hr Sodium level normal at 135. Nephrology following. Resume all home medications continue cardiac telemetry and monitor blood pressure Patient has been cleared medically for surgical repair of the left femur she is considered low operative risk. PT OT evaluation patient will require subacute rehab and she can be discharged back to [facility] today. Medically she is stable to discharge. The impression and plan of care has been dictated by Radha Menard, Nurse Practitioner as directed. Dr. Delicia MD I have performed a history and physical examination and medical decision making of this patient, discussed the same with the dictator, and agree with the dictators assessment and plan as written, documented as a scribe. Based on total visit time, I have performed more than 50% of this visit. Objective - Vital Signs Vital signs: Vital Signs Temp 98.2 F 01/24/24 07:05 Pulse 79 01/24/24 07:05 Resp 17 01/24/24 07:05 BP 108/72 01/24/24 07:05 Pulse Ox 95 01/24/24 07:05 FiO2 Intake & Output 01/23/24 01/24/24 01/24/24 18:59 06:59 18:59 Intake Total 320 200 Output Total 800 Balance -480 200 Intake: Oral 320 200 Output: Urine 800 Straight 400 Uretheral (Craig) 400 Other: Voiding Method Indwelling Catheter # Voids 1 2 # Bowel Movements 1 - Labs CBC & Chem 7: 01/23/24 03:32 01/23/24 03:32 Assessment and Plan Time with Patient: Less than 30
[2024-01-24 14:41] VITALS: BP 115/77; PULSE 91; TEMP 97.7
== END 2024-01-24 14:29 | DRG 481 ==
LOC: EC 23:37 → 4SSUR 01-20 02:08
PROVIDERS: ADMIT Orthopaedic Surgery; ATTEND Orthopaedic Surgery
PROC: 0QS706Z Reposition Left Upper Femur with Intramedullary Internal Fixation Device, Open Approach (ICD-10-PCS; principal; 2024-01-21 07:30)
DX: S72.22XA Displaced subtrochanteric fracture of left femur, initial encounter for closed fracture (principal); E87.1 Hypo-osmolality and hyponatremia; F01.53 Vascular dementia, unspecified severity, with mood disturbance; F01.54 Vascular dementia, unspecified severity, with anxiety; J44.9 Chronic obstructive pulmonary disease, unspecified; F31.9 Bipolar disorder, unspecified; B19.20 Unspecified viral hepatitis C without hepatic coma; E03.9 Hypothyroidism, unspecified; E78.5 Hyperlipidemia, unspecified; G89.29 Other chronic pain; M54.50 Low back pain, unspecified; R13.10 Dysphagia, unspecified; M81.0 Age-related osteoporosis without current pathological fracture; E86.1 Hypovolemia; Q03.9 Congenital hydrocephalus, unspecified; F17.210 Nicotine dependence, cigarettes, uncomplicated; S72.141D Displaced intertrochanteric fracture of right femur, subsequent encounter for closed fracture with routine healing; W19.XXXA Unspecified fall, initial encounter
CPT/HCPCS: 71045; 73502; 80048; 81003; 83880; 83935; 84295; 84300; 84443; 85025; 85610; 85730; 93306; 94760; 96365; 96375; 99285

== ENCOUNTER → 2024-02-20 | Outpatient (CLI) | payer MEDICARE ==
--- NOTE | 2024-02-20 09:15 | FL ---
EXAMINATION TYPE: FL barium swallow DATE OF EXAM: 02/20/2024 COMPARISON: Dysphasia CLINICAL INDICATION: Female, 63 years old with history of R13.19 Other dysphagia; PHH, TECHNIQUE: A double contrast esophagram is performed utilizing air and barium. A total of 39 second s of fluoroscopic time was utilized during procedure and 33 images obtained. Total dose area product (DAP) in uGy*m?, mGy*cm? (or similar) Not provided. COMPARISON: None FINDINGS: There are occasional tertiary contractions of the esophagus. There is a posterior impressio n of the mid cervical spine at the levels C4-C5 which could be related to degenerative spurring. No f illing defect. This appears extrinsic. Small hiatal hernia. No significant gastroesophageal reflux was seen during real time performance of this study. IMPRESSION: 1. Small hiatal hernia with no gastroesophageal reflux. 2. Tertiary contractions of the esophagus. 3. There is a extrinsic compression of the cervical spine esophagus at the level of C4-C5 possibly re lated to hypertrophic spurring. Recommend correlation with modified barium swallow. [facility], , 02/20/2024 9:12 AM
== END | disposition home or self-care (01) ==
LOC: RADFLMAIN 07:46
PROVIDERS: ATTEND Internal Medicine Gastroenterology
DX: K44.9 Diaphragmatic hernia without obstruction or gangrene (principal); K22.4 Dyskinesia of esophagus; R13.19 Other dysphagia
CPT/HCPCS: 74220

== ENCOUNTER → 2024-08-09 | Outpatient (CLI) | payer MEDICARE, OTHER ==
--- NOTE | 2024-08-09 13:45 | FL ---
EXAMINATION TYPE: FL barium swallow w video DATE OF EXAM: 08/09/2024 CLINICAL HISTORY: 64-year-old female R13.19 Dysphagia. Oral swallowing. TECHNIQUE: Deglutition study is performed utilizing thin liquid barium, barium thick voiding, and ba rium coated cracker. Total dose area product (DAP) in uGy*m?, mGy*cm? (or similar): [id number]. Total fluoroscopy time: 1 minute 15 seconds. COMPARISON: None. FINDINGS: The oral and pharyngeal phases show satisfactory initiation and propagation with all modali ties tested. Normal mastication is seen with solid modalities tested though the patient is edentulou s. There is no evidence of penetration or aspiration with any modality tested. No significant phary ngeal residue was appreciated. IMPRESSION: No penetration or aspiration. Please refer to speech therapist notes for further details if necessary. [facility], , 08/09/2024 1:43 PM
== END | disposition home or self-care (01) ==
LOC: RADFLMAIN 12:00
PROVIDERS: ATTEND Internal Medicine Gastroenterology
DX: R13.19 Other dysphagia (principal)
CPT/HCPCS: 74230